=== PATIENT | male | born 1990 | race Caucasian/White ===

== ENCOUNTER 2020-08-23 15:51 | Outpatient (RCR) | payer MEDICARE, MEDICAID, SELFPAY ==
--- NOTE | 2020-08-23 16:57 | PTOPEVAL ---
Thank you for referring Akash Carias to [facility].? The patient is scheduled to be seen for therapy? ___2_x/week for 10 visits. Please review, sign, date and return this plan of care LES. I agree with and certify that the following plan of care is medically necessary. Referring Physician Date Admitting Provider: Attending Provider: Thai Lopez MD Referring Provider: *PT Outpatient Evaluation Start: 08/23/20 15:54 Freq: Status: Active Protocol: Document 08/23/20 15:55 CONY (Rec: 08/23/20 16:54 CONY [id number]) Therapy Assessment Status Assessment Status Assessment Status Evaluation Evaluation Information Problem Diagnosis neck pain and radiculopathy Onset 08/09/20 Subjective Information Pt. reports that he developed Query Text:As Reported By Patient/ neck pain about 2 weeks ago. Family He has Tourettes syndrome with involuntary motor tics. He states that he will punch the neck and cause self harm due to the tics. He reports his attack about 2 weeks ago resulted in his neck pain. He reports that he has pain on the left side of the neck and radiates down the entire left arm. He reports that pain wakes him at night frequently and notes weakness in the left arm. He has had MRI and xray . He reports that his goal for therapy is to decrease his pain. Prior Level of Function Activity Level (Last 3 Months) Occupation unemployed Hand Dominance Left Activity of Daily Living Ability Independent Indoor/Home Mobility Independent Community Mobility Independent Stairs Ability Independent Functional Cognition (Planning, Shopping Independent , Taking Medications) Cooking Yes Cleaning Yes Laundry Yes Shopping Yes Driving Yes Comments Additional Prior Level of Function He started prednisone today Comments for pain. He reports that he will watch moves for up to 4 hours of movies a day on his computer. He also does 2 hours a day of celio. Pain Assessment Timing of Pain Assessment
--- NOTE | 2020-11-13 14:47 | PCPTNOTE ---
Mr. Carias attended a total of 3 treatment sessions from 08/23/20 to 08/30/20. Pt. has failed to return to the clinic and not responded to attempted phone calls. He will be discharged from our care. Refer to the last daily note for pt. discharge status. Diony Monterroso, MPT
== END 2020-08-30 15:32 | disposition home or self-care (01) ==
LOC: CHSPT 15:51
PROVIDERS: PCP Internal Medicine; Visit Provider Internal Medicine
DX: M54.2 Cervicalgia (principal); M54.10 Radiculopathy, site unspecified
CPT/HCPCS: 97014; 97110; 97140; 97161; G0283

== ENCOUNTER 2020-08-25 18:14 | Emergency (ER) | payer MEDICARE, MEDICAID, SELFPAY ==
--- NOTE | ~2020-08-25 | CT_ITS ---
EXAMINATION: CT abdomen pelvis wo con DATE: 08/25/2020 20:15 INDICATION: Renal stone presenting with left lower back/flank pain. TECHNIQUE: Computed tomography (CT) of the abdomen and pelvis was performed without intravenous contr ast. Automated exposure control and iterative reconstruction technique were employed. The dose-length product was 503.57 mGy-cm. COMPARISON: None FINDINGS: Minimal lingular discoid atelectasis.. Heart size is normal. No pericardial or pleural effusion. Live r, gallbladder, spleen, pancreas and bilateral adrenal glands are normal. Kidneys and ureters are nor mal with no urolithiasis, hydroureteronephrosis or perinephric/ureteral stranding. Bladder is normal. Bowels are normal. The appendix is not visualized. No pericecal inflammatory change to suggest acute appendicitis.. No free intraperitoneal gas or fluid. No pathologically enlarged abdominal or pelvic lymphadenopathy. Moderate thoracic and mild lumbar spondylosis. IMPRESSION: 1. No urolithiasis or acute intra-abdominal/pelvic process. Reviewed, dictated and finalized at location A.
--- NOTE | ~2020-08-25 | XR_ITS ---
EXAMINATION: XR chest 2V DATE: 08/25/2020 20:15 INDICATION: Cough TECHNIQUE: PA and lateral views of the chest were obtained. COMPARISON: Chest radiograph dated 03/16/2017 FINDINGS: Small linear opacity at the lingula consistent with discoid atelectasis. No other airspace opacities, pulmonary edema, pleural effusion or pneumothorax. The cardiomediastinal silhouette is normal. Mild thoracolumbar spondylosis. IMPRESSION: 1. Minimal lingular discoid atelectasis. Reviewed, dictated and finalized at location A.
[2020-08-25 18:20] VITALS: BP 148/99; PULSE 118; RESP 20; TEMP 36.6; O2SAT 96
[2020-08-25] MEDS: KETOROLAC 30 MG/ML VIAL (*BKC) IV PUSH (19:03)
[2020-08-25] MEDS: BACLOFEN 10 MG TABLET 20 MG PO (19:14)
[2020-08-25] MEDS: DEXAMETHASONE SOD PHOS INJ 4 MG/ML VIAL 10 MG IV PUSH (19:15)
[2020-08-25 19:41] LABS: Basophils Absolute Auto 0.03 K/mm3 (0.00-0.10); Basophils Percent Auto 0.3 % (0.0-1.0); Hematocrit 43.2 % (40.0-54.0); Hemoglobin 14.5 g/dL (14.0-18.0); Immature Granulocyte Absolute 0.17 K/mm3 (0.00-0.00); Immature Granulocyte Percent A 1.5 % (0.0-0.0); Lymphocytes Absolute Auto 1.33 K/mm3 (1.10-4.50); Lymphocytes Percent Auto 11.8 % (18.0-42.0); Mean Corpuscular HGB Conc 33.6 g/dL (32.0-36.0); Mean Corpuscular Hemoglobin 30.1 pg (27.0-31.0); Mean Corpuscular Volume 89.8 fL (78.0-102.0); Mean Platelet Volume 9.2 fl (8.7-11.0); Monocytes Absolute Auto 0.44 K/mm3 (0.10-0.90); Monocytes Percent Auto 3.9 % (2.0-11.0); Neutrophils Absolute Auto 9.3 K/mm3 (1.7-7.2); Neutrophils Percent Auto 82.5 % (50.0-70.0); Platelet Count Result 378 K/mm3 (150-420); Red Blood Count 4.81 M/mm3 (4.70-6.10); Red Cell Distribution Width 12.9 % (11.6-14.4); White Blood Count 11.3 K/mm3 (4.8-10.8)
[2020-08-25 19:59] LABS: D Dimer 0.26 mg/L (0.19-0.50)
[2020-08-25 20:05] LABS: Add Urine Microscopic? NO; Appearance Urine Clear (Clear); Bilirubin Urine Negative (Negative); Blood Urine Negative (Negative); Color Urine Yellow (Yellow); Glucose Urine UA Negative (Negative); Ketones Urine Negative (Negative); Leukocyte Esterase Ur Negative (Negative); Nitrate Urine Negative (Negative); Protein Urine Negative (Negative); Urobilinogen Urine 0.2 mg/dL (0.2-1.0); pH Urine 6.5 (5.0-8.0)
[2020-08-25 20:10] LABS: Amphetamine Screen Urine Negative (Negative); Barbiturate Screen Urine Negative (Negative); Benzodiazepines Screen Urine Negative (Negative); Cannabinoid Screen Urine Positive (Negative); Cocaine Screen Urine Negative (Negative); Methadone Screen Urine Negative (Negative); Opiate Screen Urine Negative (Negative); Phencyclidine Screen Urine Negative (Negative)
[2020-08-25 20:13] LABS: Alanine Aminotransferase 35 U/L (16-63); Albumin Level 3.8 g/dL (3.4-5.0); Alkaline Phosphatase 118 U/L (46-116); Anion Gap 8 mmol/L (8-16); Aspartate Amino Transferase 17 U/L (15-37); Bilirubin,Total 0.4 mg/dL (0.00-1.00); Blood Urea Nitrogen 23 mg/dL (7-18); Calcium 8.9 mg/dL (8.5-10.1); Carbon Dioxide 30 mmol/L (21-32); Chloride 101 mmol/L (98-108); Estimated CRCL calculation 109 ml/min; Estimated Glomerular Filt Rate > 60; Glucose 112 mg/dL (70-99); Osmolality Calculated 292 mOsm/kg (285-295); Sodium 139 mmol/L (136-145); Total Protein 7.8 g/dL (6.4-8.2)
[2020-08-25 20:17] LABS: Troponin I < 4.0 ng/L (0.00-60.4)
[2020-08-25 20:35] VITALS: BP 148/98; PULSE 104; RESP 20; TEMP 36.7; O2SAT 94
--- NOTE | 2020-08-25 21:14 | ED.BACK ---
HPI - Back Pain/Injury General Chief Complaint: Back Pain/Injury Stated Complaint: pulled muscle Time Seen by Provider: 08/25/20 18:30 Source: patient and family Mode of arrival: ambulatory Limitations: no limitations History of Present Illness HPI Narrative: Patient comes in with complaints of left sided chest pain, and left back pain for the past 1 week. He is acting like he is in severe pain as if he can hardly move. He describes pain as severe, associated with shortness of breath, and abdominal pain. He actually is pointing in several places that he says hurts, this is a most confusing picture. But the main place of pain seems to be the left lower ribcage / upper abdomen area. Pain is sharp, seems to come and go, and is cramp like severe, breif in nature, but recurring This has not been precipitated by any known context. Related Data Home Medications Medication Instructions Recorded Confirmed clonazepam 5 mg PO TID 08/25/20 08/25/20 cyclobenzaprine 10 mg PO BID 08/25/20 08/25/20 doxepin 25 mg PO HS 08/25/20 08/25/20 paroxetine HCl 60 mg PO DAILY 08/25/20 08/25/20 prednisone 20 mg PO DAILY 08/25/20 08/25/20 Allergies Allergy/AdvReac Type Severity Reaction Status Date / Time No Known Allergies Allergy Unverified 12/05/11 06:37 Review of Systems Constitutional: Constitutional: Reports no additional constitutional complaints Eyes: Eyes: Reports no additional eye complaints ENT: Reports system reviewed and no additional complaints, except as documented Cardiovascular: Cardiovascular: Reports no additional cardiovascular complaints Respiratory: Respiratory: Reports no additional respiratory complaints Gastrointestinal: Gastrointestinal: Reports no additional gastrointestinal complaints Genitourinary: Genitourinary: Reports no additional male genitourinary complaints Musculoskeletal: Musculoskeletal: Reports no additional musculoskeletal complaints Integumentary/Breasts: Skin/Breast: Reports system reviewed and no additional complaints, except as docu Neurologic: Reports system reviewed and no additional complaints, except as documented Psychiatric: Psychiatric: Reports no additional psychiatric complaints Endocrine: Endocrine: Reports no additional endocrine complaints Hematologic/Lymphatic: Hematologic/Lymphatic: Reports no additional hematologic/lymphatic complaints Allergic/Immunologic: Allergic/Immunologic: Reports no additional allergic/immunologic complaints [facility] Past Medical History Medical History (Updated 08/26/20 @ 22:28 by Montana Gates MD) Fibromyalgia Surgical History Surgical History (Updated 08/26/20 @ 22:29 by Montana Gates MD) No significant past surgical history Family History Family History (Updated 08/26/20 @ 22:30 by Montana Gates MD) Mother COPD (chronic obstructive pulmonary disease) Father Colon cancer Social History Social History (Updated 08/26/20 @ 22:30 by Montana Gates MD) Substance use type: marijuana Exam Const: Orientation/consciousness: patient oriented x3 Other: Appears quite uncomfortable HENMT: Head: normal to inspection Ears: external ears normal and TM's normal bilaterally General nose exam: Normal external nose present Face and sinus: normal facial exam Mouth: Yes Abnormal oral and palatal mucosa present Throat: posterior oropharynx normal Eyes: Conjunctivae: conjunctivae normal Neck: Neck: normal visual inspection and no lymphadenopathy Chest: Chest palpation & inspection: normal inspection of the chest Resp: Effort & Inspection: normal respiratory effort Auscultation: clear to auscultation bilaterally Cardio: Rate: regular rate Rhythm: regular rhythm GI: GI Palp: Yes Soft to palpation (nontender) Back/Spine/Pelvis: Back: no CVA tenderness Skin: General skin exam: normal color Rashes: no rashes Neuro: General: patient oriented x3, moves all extremities and CN's II-XI intact bilaterally Extrem: General
[2020-08-25 21:32] VITALS: BP 137/78; PULSE 98; RESP 20; O2SAT 99
== END 2020-08-25 21:36 | disposition home or self-care (01) ==
PROVIDERS: Emergency Provider Emergency Medicine; PCP Internal Medicine
DX: M54.9 Dorsalgia, unspecified (principal); M79.7 Fibromyalgia; F12.90 Cannabis use, unspecified, uncomplicated; Z80.0 Family history of malignant neoplasm of digestive organs
CPT/HCPCS: 36415; 71046; 74176; 80053; 80307; 81003; 83605; 84484; 85025; 85380; 96374; 96375; 99283; 99284; A9270; J1100; J1885

== ENCOUNTER 2020-12-08 11:28 | Outpatient (CLI) | payer MEDICARE, SELFPAY ==
[2020-12-08 13:02] LABS: Thyroid Stimulating Hormone 1.46 uIU/mL (0.36-3.74)
[2020-12-12 09:53] LABS: Anti Streptolysin O Screen <50 IU/mL (<200); Ceruloplasmin 34 mg/dL (18-36)
== END 2020-12-08 11:29 | disposition home or self-care (01) ==
LOC: CHSLAB 11:32
PROVIDERS: PCP Internal Medicine
DX: F95.2 Tourette's disorder (principal); G25.9 Extrapyramidal and movement disorder, unspecified
CPT/HCPCS: 36415; 82390; 84443; 86060

== ENCOUNTER 2020-12-27 09:33 | Outpatient (CLI) | payer MEDICARE, MEDICAID, SELFPAY ==
--- NOTE | ~2020-12-27 | MR_ITS ---
EXAMINATION: MR elbow RT wo con DATE: 12/27/2020 10:54 INDICATION: Soft tissue mass at the supra cubital region of the right elbow. TECHNIQUE: Magnetic resonance imaging (MRI) of the right elbow was performed without intravenous cont rast. Sequences included coronal, axial, and sagittal PD-weighted FS FSE and coronal, axial, and sagi ttal PD-weighted FSE. COMPARISON: None FINDINGS: Osseous/other: Normal alignment. Normal marrow signal with no marrow edema, fracture, osteochondral lesion or abnor mal marrow replacing process. No abnormal masses or fluid collections identified. Tendons: Triceps, biceps brachii and brachialis tendons are normal. Common flexor tendon wad is normal. The c ommon extensor tendon wad is normal. Ligaments: The medial and lateral collateral ligament complexes are normal. Cubital tunnel: Cubital tunnel is unremarkable with normal signal and caliber of the ulnar nerve. Fluid: Physiologic amount of fluid the elbow joint. IMPRESSION: 1. Normal MRI of the right elbow. No abnormal masses or fluid collections identified at the region of concern. Reviewed, dictated and finalized at location A. IMPRESSION: 1. Normal MRI of the right elbow. No abnormal masses or fluid collections ident ified at the region of concern.
== END 2020-12-27 09:34 | disposition home or self-care (01) ==
LOC: CHSIMG 09:34
PROVIDERS: PCP Internal Medicine; Visit Provider Internal Medicine
DX: R22.31 Localized swelling, mass and lump, right upper limb (principal)
CPT/HCPCS: 73221

== ENCOUNTER 2021-06-05 09:25 | Emergency (ER) | payer OTHER, SELFPAY ==
--- NOTE | ~2021-06-05 | CT_ITS ---
EXAMINATION: CT brain wo con EXAM DATE: 06/05/2021 10:09 INDICATION: Syncope injury to post skull, hx mult syncopal episodes. TECHNIQUE: Spiral CT of the head was performed without contrast. Axial, coronal and sagittal images were reviewed. The dose-length product (DLP) for this examination was 605.33 mGy-cm. The exposure w as tailored according to patient size, and iterative reconstruction (ASIR) was used as additional dos e reduction technique. There is no prior study for comparison. FINDINGS: There is no acute intraparenchymal hemorrhage. No evidence of intraparenchymal brain mass lesion. No evidence of acute infarction. There is no mass effect or midline shift. The ventricles are normal in size. There are no extra-axial collections. There are no acute calvarial fractures. T he orbits are unremarkable. Soft tissue is unremarkable. The visualized sinuses and mastoid air hector ls are well aerated. IMPRESSION: No acute intracranial findings. Reviewed, dictated and finalized at location B. 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
--- NOTE | ~2021-06-05 | XR_ITS ---
EXAMINATION: XR chest 2V DATE: 06/05/2021 10:10 INDICATION: Syncope and confusion. TECHNIQUE: frontal and lateral views of the chest were obtained. COMPARISON: Chest radiograph dated 08/25/2020 FINDINGS: The lungs are clear with no focal airspace opacities, pulmonary edema, pleural effusion or pneumothor ax. The cardiomediastinal silhouette is normal. Mild thoracic spondylosis with straightening of the n ormal thoracic kyphosis. IMPRESSION: 1. No acute cardiopulmonary disease. Reviewed, dictated and finalized at location A. NE HEALER
--- NOTE | 2021-06-05 09:34 | ECG_ITS ---
Measurements Intervals [place] Rate: 100 P: 66 [place]: 149 QRS: 59 QRSD: 88 T: 61 QT: 323 QTc: 418 Interpretive Statements SINUS TACHYCARDIA BASELINE ARTIFACT- I, II, AVR, AVL, AVF BORDERLINE ECG Electronically Signed On 06-05-2021 10:07:31 [employer] by Rishi Enamorado D.O.
[2021-06-05 09:35] VITALS: PULSE 90
--- NOTE | 2021-06-05 09:37 | ED.SYNCOPE ---
HPI - Syncope General Chief Complaint: Syncope Stated Complaint: AMBULANCE Time Seen by Provider: 06/05/21 09:37 Source: patient Mode of arrival: EMS Limitations: no limitations History of Present Illness HPI narrative: 31-year-old man with history of Tourette's, frequent syncopal episodes, and cervical spine stenosis brought to the emergency department by EMS after he had a syncopal episode at home during which he struck the back of his head on an appliance. His family states that he was unconscious only briefly. His mother stated that he usually recovers rapidly after syncopal episodes but today he seemed confused for a bit longer than usual. He states that he has frequent episodes of confusion. He has been well lately and has had no recent illness. MD complaint: loss of consciousness Onset (ago): minute(s) (30) -: second(s) Prodromal symptoms: none Witnessed: Yes - by Bystander Context: standing up Injuries sustained associated with event: head Current symptoms: none History: previous syncopal episode Treatments prior to arrival: none Related Data Home Medications Medication Instructions Recorded Confirmed clonazepam 5 mg PO TID 08/25/20 06/05/21 cyclobenzaprine 10 mg PO BID 08/25/20 06/05/21 doxepin 25 mg PO HS 08/25/20 06/05/21 paroxetine HCl 60 mg PO DAILY 08/25/20 06/05/21 albuterol sulfate [Ventolin HFA] 90 mcg INHALATION PRN PRN 06/05/21 06/05/21 atenolol 50 mg PO DAILY 06/05/21 06/05/21 Allergies Allergy/AdvReac Type Severity Reaction Status Date / Time No Known Allergies Allergy Verified 06/05/21 10:35 Review of Systems Review of Systems: ROS per the patient's family. Constitutional: Constitutional: Denies fatigue and Denies fever(s) ENT: Denies nasal congestion and Denies sore throat Cardiovascular: Cardiovascular: Denies chest pain Respiratory: Respiratory: Reports cough ( chronic) and Denies dyspnea Gastrointestinal: Gastrointestinal: Denies abdominal pain, Denies diarrhea, Denies nausea and Denies vomiting Musculoskeletal: Musculoskeletal: Reports back pain ( chronic neck pain), Denies arthralgias and Denies joint swelling Integumentary/Breasts: Skin/Breast: Denies pruritus, Denies erythema and Denies rash Neurologic: Reports as per HPI and Reports syncope [facility] Past Medical History Medical History (Updated 06/05/21 @ 10:57 by Jarret Bernardo MD) Fibromyalgia Syncopal episodes Tourette syndrome Surgical History Surgical History (Updated 08/26/20 @ 22:29 by Montana Gates MD) No significant past surgical history Family History Family History (Updated 08/26/20 @ 22:30 by Montana Gates MD) Mother COPD (chronic obstructive pulmonary disease) Father Colon cancer Social History Social History (Updated 06/05/21 @ 10:10 by Jarret Bernardo MD) Smoking status: Never smoker Alcohol intake: never Substance use type: marijuana Living arrangements: with family Exam Const: General: healthy appearing, no acute distress, alert and confusion HENMT: Head: laceration (4.5 cm occiput) Ears: external ears normal, TM's normal bilaterally and EAC's normal General nose exam: Normal nares present Face and sinus: normal facial exam Mouth: Yes moist mucous membranes Throat: posterior oropharynx normal Eyes: Conjunctivae: conjunctivae normal Pupils: Equal, round and reactive pupils present EOM: EOMs intact bilaterally Resp: Effort & Inspection: normal respiratory effort and not labored Auscultation: clear to auscultation bilaterally, no rales, no rhonchi and no wheezes Cardio: Rate: regular rate Rhythm: regular rhythm Heart sounds: no murmurs GI: Auscultation: normal bowel sounds ( nontender) Other: follicular rash around the umbilicus Skin: General skin exam: normal color, no jaundice and no pallor Rashes: no rashes Neuro: General: patient oriented x3, moves all extremities, no focal motor deficits and CN's II-XI intact bilaterally Cranial nerves: Yes N
[2021-06-05 09:40] VITALS: BP 109/84; BP 118/82; PULSE 104; PULSE 93
[2021-06-05 09:42] VITALS: BP 109/84; PULSE 104
[2021-06-05] MEDS: SODIUM CHLORIDE 0.9% IV 1,000 ML 999 ML IV CONT (09:42)
[2021-06-05 09:45] VITALS: BP 133/106; PULSE 99; RESP 16; TEMP 36.3; O2SAT 97
[2021-06-05 10:26] LABS: Basophils Absolute Auto 0.05 K/mm3 (0.00-0.10); Basophils Percent Auto 0.6 % (0.0-1.0); Eosinophils Absolute Auto 0.43 K/mm3 (0.02-0.50); Eosinophils Percent Auto 5.4 % (1.0-6.0); Hematocrit 41.1 % (40.0-54.0); Hemoglobin 14.4 g/dL (14.0-18.0); Immature Granulocyte Absolute 0.06 K/mm3 (0.00-0.00); Immature Granulocyte Percent A 0.8 % (0.0-0.0); Lymphocytes Absolute Auto 1.49 K/mm3 (1.10-4.50); Lymphocytes Percent Auto 18.8 % (18.0-42.0); Mean Corpuscular Hemoglobin 30.8 pg (27.0-31.0); Mean Corpuscular Volume 87.8 fL (78.0-102.0); Monocytes Absolute Auto 0.47 K/mm3 (0.10-0.90); Monocytes Percent Auto 5.9 % (2.0-11.0); Neutrophils Absolute Auto 5.4 K/mm3 (1.7-7.2); Neutrophils Percent Auto 68.5 % (50.0-70.0); Platelet Count Result 319 K/mm3 (150-420); Red Blood Count 4.68 M/mm3 (4.70-6.10); Red Cell Distribution Width 12.6 % (11.6-14.4); White Blood Count 7.9 K/mm3 (4.8-10.8)
[2021-06-05 10:43] LABS: D Dimer 0.43 mg/L (0.19-0.50)
[2021-06-05 10:45] VITALS: BP 117/83; PULSE 86; RESP 16; O2SAT 95
--- NOTE | 2021-06-05 10:45 | PC.NURSE ---
Assisted Dr. Bernardo with laceration repair.
[2021-06-05 10:48] LABS: Lactic Acid Reflex 1.3 mmol/L (0.4-2.0)
[2021-06-05 10:49] LABS: Alanine Aminotransferase 60 U/L (16-63); Albumin Level 3.5 g/dL (3.4-5.0); Alkaline Phosphatase 127 U/L (46-116); Anion Gap 12 mmol/L (8-16); Aspartate Amino Transferase 32 U/L (15-37); Bilirubin,Total 0.5 mg/dL (0.00-1.00); Blood Urea Nitrogen 15 mg/dL (7-18); Calcium 8.7 mg/dL (8.5-10.1); Carbon Dioxide 27 mmol/L (21-32); Chloride 98 mmol/L (98-108); Estimated CRCL calculation 117 ml/min; Estimated Glomerular Filt Rate > 60; Glucose 96 mg/dL (70-99); Magnesium 2.1 mg/dL (1.8-2.4); Osmolality Calculated 284 mOsm/kg (285-295); Potassium 4.5 mmol/L (3.5-5.1); Sodium 137 mmol/L (136-145); Total Protein 7.4 g/dL (6.4-8.2)
[2021-06-05 10:51] LABS: Troponin I < 4.0 ng/L (0.00-60.4)
[2021-06-05 10:53] LABS: SARS-CoV-2 Ag Negative (Negative)
== END 2021-06-05 11:40 | disposition home or self-care (01) ==
PROVIDERS: Emergency Provider Emergency Medicine; PCP Internal Medicine
DX: R55 Syncope and collapse (principal); S09.90XA Unspecified injury of head, initial encounter; S01.01XA Laceration without foreign body of scalp, initial encounter; W22.8XXA Striking against or struck by other objects, initial encounter; Z20.822 Contact with and (suspected) exposure to COVID-19
CPT/HCPCS: 12002; 36415; 70450; 71046; 80053; 83605; 83735; 84484; 85025; 85380; 87426; 93005; 96360; 99284; C9803; J7030

== ENCOUNTER 2021-09-18 13:48 | Outpatient (RCR) | payer OTHER, SELFPAY ==
--- NOTE | 2021-09-18 15:10 | PTOPEVAL ---
Thank you for referring Akash Carias to [facility].? The patient is scheduled to be seen for therapy? __2__x/week for 10 visits. Please review, sign, date and return this plan of care LES. I agree with and certify that the following plan of care is medically necessary. Referring Physician Date Admitting Provider: Attending Provider: Massimo Deal Referring Provider: *PT Outpatient Evaluation Start: 09/18/21 14:13 Freq: Status: Active Protocol: Document 09/18/21 14:13 CONY (Rec: 09/18/21 15:10 CONY [id number]) Therapy Assessment Status Assessment Status Assessment Status Evaluation Outpatient Past Medical History Cardiovascular History Hx Hypertension Yes Gastrointestinal History Hx Obstructive Bowel Yes Psychosocial History Hx Anxiety Yes Hx Attention Deficit Disorder Yes Hx Depression Yes Hx Other Psychiatric Disorders Yes: ocd Other History Hx Other Medical Conditions Yes: tourettes syndrome Evaluation Information Problem Diagnosis cervical radiculopathy Onset 08/14/21 Subjective Information Pt. reports that that he began Query Text:As Reported By Patient/ developing weakness that Family developed into paralysis in July. He underwent surgery after MRI revealed pinched nerve in his neck. His mother is present and states that pt . developed some akward slow movements after surgery. He states that he cannot put deodorant and put a shirt on without help from his mother. He reports that he is currently using a walker and is numb from the waist down. He states that he gets uncontrollable shaking into the l.e. He reports that his goal is to be able to walk normal. Prior Level of Function Activity Level (Last 3 Months) Occupation disability Hand Dominance Ambidextrous Activity of Daily Living Ability Independent Indoor/Home Mobility Independent Community Mobility Independent Stairs Ability Independent Functional Cognition (Planning, Shopping Independent , Taking Medications) Cooking Yes Cleaning Yes Laundry Yes Shopping
--- NOTE | 2021-10-02 17:20 | OTOPEVAL ---
Thank you for referring Akash Carias to [facility].? The patient is scheduled to be seen for therapy? ____x/week for ___ weeks. Please review, sign, date and return this plan of care LES. I agree with and certify that the following plan of care is medically necessary. Referring Physician Date Admitting Provider: Attending Provider: Massimo Deal Referring Provider: RebekaOT Outpatient Evaluation Start: 10/02/21 15:05 Freq: Status: Active Protocol: Document 10/02/21 15:44 MBS (Rec: 10/02/21 17:20 [facility] [id number]) Therapy Assessment Status Assessment Status Assessment Status Evaluation Outpatient Past Medical History Cardiovascular History Hx Hypertension Yes Gastrointestinal History Hx Obstructive Bowel Yes Psychosocial History Hx Anxiety Yes Hx Attention Deficit Disorder Yes Hx Depression Yes Hx Other Psychiatric Disorders Yes: ocd Other History Hx Other Medical Conditions Yes: tourettes syndrome Evaluation Information Problem Diagnosis UE weakness, decreased coordination Onset 08/21/21 Cause cervical radiculopathy Additional Evaluation Detail Quick DASH: 86.4% Subjective Information Pt. reports that that he began Query Text:As Reported By Patient/ developing weakness that Family developed into paralysis in July. He underwent surgery after MRI revealed pinched nerve in his neck. (mother reports spinal cord was almost severed) His mother is present and assists in providing subjective information. Patient states that he cannot put deodorant on and put a shirt on without help from his mother. He reports that he is currently using a walker and is numb from the waist down. He states that he gets uncontrollable shaking into the l.e. He reports that his goal is to be able to walk normal. Prior to surgery patient reports that he was independent with all ADLs and IADLs. Patient reports that his L hand likes to draw in. Patient writes with his
--- NOTE | 2021-10-02 18:07 | OTOPEVAL ---
Thank you for referring Akash Carias to [facility].? The patient is scheduled to be seen for therapy? ____x/week for ___ weeks. Please review, sign, date and return this plan of care LES. I agree with and certify that the following plan of care is medically necessary. Referring Physician Date Admitting Provider: Attending Provider: Massimo Deal Referring Provider: RebekaOT Outpatient Evaluation Start: 10/02/21 15:05 Freq: Status: Active Protocol: Document 10/02/21 15:44 MBS (Rec: 10/02/21 17:20 [id number]) Therapy Assessment Status Assessment Status Assessment Status Evaluation Outpatient Past Medical History Cardiovascular History Hx Hypertension Yes Gastrointestinal History Hx Obstructive Bowel Yes Psychosocial History Hx Anxiety Yes Hx Attention Deficit Disorder Yes Hx Depression Yes Hx Other Psychiatric Disorders Yes: ocd Other History Hx Other Medical Conditions Yes: tourettes syndrome Evaluation Information Problem Diagnosis UE weakness, decreased coordination Onset 08/21/21 Cause cervical radiculopathy Additional Evaluation Detail Quick DASH: 86.4% Subjective Information Pt. reports that that he began Query Text:As Reported By Patient/ developing weakness that Family developed into paralysis in July. He underwent surgery after MRI revealed pinched nerve in his neck. (mother reports spinal cord was almost severed) His mother is present and assists in providing subjective information. Patient states that he cannot put deodorant on and put a shirt on without help from his mother. He reports that he is currently using a walker and is numb from the waist down. He states that he gets uncontrollable shaking into the l.e. He reports that his goal is to be able to walk normal. Prior to surgery patient reports that he was independent with all ADLs and IADLs. Patient reports that his L hand likes to draw in. Patient writes with his
--- NOTE | 2021-11-16 12:32 | PTOPEVAL ---
Thank you for referring Akash Carias to [facility].? The patient is scheduled to be seen for therapy? 2x/week for 4 visits. Please review, sign, date and return this plan of care LES. I agree with and certify that the following plan of care is medically necessary. Referring Physician Date Admitting Provider: Attending Provider: Massimo Deal Referring Provider: RebekaPT Outpatient Evaluation Start: 09/18/21 14:13 Freq: Status: Active Protocol: Document 11/16/21 11:09 [facility] (Rec: 11/16/21 12:31 [facility] [email or web address]) Therapy Assessment Status Assessment Status Assessment Status Progress Outpatient Past Medical History Cardiovascular History Hx Hypertension Yes Gastrointestinal History Hx Obstructive Bowel Yes Psychosocial History Hx Anxiety Yes Hx Attention Deficit Disorder Yes Hx Depression Yes Hx Other Psychiatric Disorders Yes: ocd Other History Hx Other Medical Conditions Yes: tourettes syndrome Evaluation Information Problem Diagnosis cervical radiculopathy Onset 08/14/21 Subjective Information Pt reports that he is doing Query Text:As Reported By Patient/ well today and denies pain. He Family is unsure if he has had a fall since last session, but reports he notices near falls when he first wakes up for the morning or from a nap. He believes this might be due to the fact that he sometimes falls asleep at his desk in a seated position that is quite low, and the grogginess on top of the low height lead to falls. Denies dark conditions during these near falls. Pain Assessment Timing of Pain Assessment Timing of Pain Assessment Pre-Treatment Self Report Self Report Pain Level 0 Pain Score Pain Score 0: Self Report Cervical and Lumbar ROM Cervical ROM Cervical Flexion (0-60) 45 Query Text:Active in Degrees Cervical Extension (0-70) 25 Query Text:Active in Degrees Cervical Lateral Flexion Right (0-50) 15 Query Text:Active in Degrees Cervical Lateral Flexion Left (0-50) 15 Query Text:Active in Degrees Cervical Rotation Right (0-90) 55 Query Text:Active in Degrees Cervical Rotation Left (0-90) 65 Query Text:Active in Degrees Lower Extremity Muscle Strength Testing General Lower Extremity Strength Gross Lower Extremity Strength Bilateral hip flexion: 55
--- NOTE | 2021-12-05 21:19 | PTOPEVAL ---
Thank you for referring Akash Carias to [facility].? The patient is scheduled to be seen for therapy? ____x/week for ___ weeks. Please review, sign, date and return this plan of care LES. I agree with and certify that the following plan of care is medically necessary. Referring Physician Date Admitting Provider: Attending Provider: Massimo Deal Referring Provider: LO Outpatient Evaluation Start: 09/18/21 14:13 Freq: Status: Active Protocol: Document 11/28/21 13:00 [facility] (Rec: 11/28/21 13:54 [facility] [id number]) Therapy Assessment Status Assessment Status Assessment Status Re-evaluation Outpatient Past Medical History Cardiovascular History Hx Hypertension Yes Gastrointestinal History Hx Obstructive Bowel Yes Psychosocial History Hx Anxiety Yes Hx Attention Deficit Disorder Yes Hx Depression Yes Hx Other Psychiatric Disorders Yes: ocd Other History Hx Other Medical Conditions Yes: tourettes syndrome Evaluation Information Problem Diagnosis cervical radiculopathy Onset 08/14/21 Subjective Information patient reports he is having Query Text:As Reported By Patient/ surgery next week, and expects Family that he wont be back into therapy for about a month. he reports his legs are tired today. Pain Assessment Timing of Pain Assessment Timing of Pain Assessment Assessment Self Report Self Report Pain Level 0 Pain Score Pain Score 0: Self Report Lower Extremity Muscle Strength Testing General Lower Extremity Strength Gross Lower Extremity Strength Bilateral hip flexion: 5/5 Bilateral knee extension: 5/5 Bilateral knee flexion: 5/5 R ankle dorsiflexion: 4/5 L ankle dorsiflexion: 4+/5 Balance Assessment Tinetti Balance Assessment Sitting Balance Steady, safe Ability to Arise Able, w/o using arms Attempts to Arise Arises on 1st attempt Immediate Standing Balance Steady w/o support Standing Balance Narrow stance w/o support Nudged Response Steady Standing with Eyes Closed Steady Step Pattern Turning 360 Degrees Discontinuous steps Stability Turning 360 Degrees Steady Sitting Down Safe, steady Initiation of Gait Hesitancy, mult. attempts Right Foot Step Length Does pass stance foot Right Foot Step Height Completely clears floor Left Foot Step Length Does pass stance foot Left Foot Step Height Completely clears floor Step Symmetry
== END 2021-11-28 10:01 | disposition home or self-care (01) ==
LOC: CHSPT 13:48
PROVIDERS: PCP Internal Medicine
DX: M54.12 Radiculopathy, cervical region (principal)
CPT/HCPCS: 97110; 97112; 97140; 97162; 97165; 97530

== ENCOUNTER 2021-10-22 10:42 | Outpatient (CLI) | payer OTHER, SELFPAY ==
--- NOTE | ~2021-10-22 | XR_ITS ---
EXAMINATION:[id number] DATE: 10/22/2021 11:09 INDICATION: Neck pain TECHNIQUE: AP, lateral, lateral swimmers and odontoid views of the cervical spine are provided. COMPARISON: 12/14/2018 FINDINGS: There is reversal of the normal cervical lordosis. Alignment is normal. There is no fractur e. There are changes of interval anterior fusion from C3 through C7 with two anterior fusion plates w hich overlap at the level of C5. There also appear to be interbody device. There is mild loss of vert ebral body height at C5. The odontoid is intact. There is moderate facet osteoarthritis throughout th e cervical spine. Prevertebral soft tissues are normal. IMPRESSION: 1. Changes of interval anterior fusion from C3 through C7 and moderate cervical spondylosis without a cute findings identified. Reviewed, dictated and finalized at location A. IMPRESSION: 1. Changes of interval anterior fusion from C3 through C7 and moderate cervical spondylosis without acute findings identified.
== END 2021-10-22 10:43 | disposition home or self-care (01) ==
LOC: CHSIMG 10:47
DX: M54.12 Radiculopathy, cervical region (principal)
CPT/HCPCS: 72040

== ENCOUNTER 2021-12-17 13:07 | Outpatient (CLI) | payer OTHER, SELFPAY ==
--- NOTE | ~2021-12-17 | XR_ITS ---
EXAMINATION: XR_CERV2-3V_CR DATE: 12/17/2021 13:41 INDICATION: Cervical radiculopathy. TECHNIQUE: 3 views of cervical spine on 4 radiographs were obtained. COMPARISON: Cervical spine radiograph 10/22/2021 FINDINGS: There is 4 degrees dextrocurvature of cervical spine. There is kyphosis of upper cervical s pine. There is 4 mm anterolisthesis of C7 on T1. There are changes of anterior fusion procedure from C3 the C7 with interbody bone graft and anterior plate with screws. There are changes of posterior fu derrick procedure from C3 to C7 with lateral mass screws, new from 10/22/2021. Intervertebral disc height s are normal at C2-C3 and C7-T1. No central canal stenosis or prevertebral soft tissue swelling. Post erior skin juno are noted. IMPRESSION: 1. Posterior fusion procedure from C3 to C7, new from 10/22/2021. 2. 4 mm anterolisthesis of C7 on T1, worsened from 10/22/2021. 3. Anterior fusion procedures from C3 to C7. Reviewed, dictated and finalized at location A.
== END 2021-12-17 13:08 | disposition home or self-care (01) ==
LOC: CHSIMG 13:10
DX: M54.12 Radiculopathy, cervical region (principal)
CPT/HCPCS: 72040

== ENCOUNTER 2021-12-21 09:57 | Outpatient (CLI) | payer OTHER, SELFPAY ==
[2021-12-21 10:15] LABS: Basophils Absolute Auto 0.03 K/mm3 (0.00-0.10); Basophils Percent Auto 0.2 % (0.0-1.0); Eosinophils Absolute Auto 0.04 K/mm3 (0.02-0.50); Eosinophils Percent Auto 0.3 % (1.0-6.0); Hematocrit 38.2 % (40.0-54.0); Immature Granulocyte Absolute 0.04 K/mm3 (0.00-0.00); Immature Granulocyte Percent A 0.3 % (0.0-0.0); Lymphocytes Absolute Auto 0.71 K/mm3 (1.10-4.50); Lymphocytes Percent Auto 5.4 % (18.0-42.0); Mean Corpuscular Hemoglobin 29.5 pg (27.0-31.0); Mean Corpuscular Volume 86.6 fL (78.0-102.0); Mean Platelet Volume 8.4 fl (8.7-11.0); Monocytes Absolute Auto 0.52 K/mm3 (0.10-0.90); Neutrophils Absolute Auto 11.8 K/mm3 (1.7-7.2); Neutrophils Percent Auto 89.8 % (50.0-70.0); Platelet Count Result 468 K/mm3 (150-420); Red Blood Count 4.41 M/mm3 (4.70-6.10); Red Cell Distribution Width 12.1 % (11.6-14.4); White Blood Count 13.1 K/mm3 (4.8-10.8)
[2021-12-21 11:19] LABS: Erythrocyte Sedimentation Rate 45 mm/hr (0-15)
== END 2021-12-21 09:58 | disposition home or self-care (01) ==
LOC: CHSLAB 09:59
DX: Z00.00 Encounter for general adult medical examination without abnormal findings (principal); M46.32 Infection of intervertebral disc (pyogenic), cervical region
CPT/HCPCS: 36415; 85025; 85652; 86140

== ENCOUNTER 2022-01-04 10:13 | Outpatient (NON) | payer OTHER, SELFPAY ==
[2022-01-04 11:13] LABS: Vancomycin Trough 11.8 ug/mL (10.0-15.0)
== END 2022-01-04 10:14 | disposition home or self-care (01) ==
LOC: CHSLAB 10:21
DX: M46.32 Infection of intervertebral disc (pyogenic), cervical region (principal)
CPT/HCPCS: 80202

== ENCOUNTER 2022-01-08 10:36 | Outpatient (NON) | payer OTHER, SELFPAY ==
[2022-01-08 10:52] LABS: Basophils Absolute Auto 0.05 K/mm3 (0.00-0.10); Basophils Percent Auto 0.9 % (0.0-1.0); Eosinophils Percent Auto 5.4 % (1.0-6.0); Hematocrit 40.9 % (40.0-54.0); Hemoglobin 13.1 g/dL (14.0-18.0); Immature Granulocyte Absolute 0.02 K/mm3 (0.00-0.00); Immature Granulocyte Percent A 0.4 % (0.0-0.0); Lymphocytes Absolute Auto 1.51 K/mm3 (1.10-4.50); Lymphocytes Percent Auto 27.3 % (18.0-42.0); Mean Corpuscular Hemoglobin 28.9 pg (27.0-31.0); Mean Corpuscular Volume 90.1 fL (78.0-102.0); Monocytes Absolute Auto 0.37 K/mm3 (0.10-0.90); Monocytes Percent Auto 6.7 % (2.0-11.0); Neutrophils Absolute Auto 3.3 K/mm3 (1.7-7.2); Neutrophils Percent Auto 59.3 % (50.0-70.0); Platelet Count Result 358 K/mm3 (150-420); Red Blood Count 4.54 M/mm3 (4.70-6.10); Red Cell Distribution Width 12.8 % (11.6-14.4); White Blood Count 5.5 K/mm3 (4.8-10.8)
[2022-01-08 11:08] LABS: Alanine Aminotransferase 38 U/L (16-63); Albumin Level 3.7 g/dL (3.4-5.0); Alkaline Phosphatase 146 U/L (46-116); Anion Gap 9 mmol/L (8-16); Aspartate Amino Transferase 36 U/L (15-37); Bilirubin,Total 0.3 mg/dL (0.00-1.00); Blood Urea Nitrogen 10 mg/dL (7-18); CRP 1.2 mg/dL (0.0-0.9); Calcium 9.4 mg/dL (8.5-10.1); Carbon Dioxide 29 mmol/L (21-32); Chloride 99 mmol/L (98-108); Estimated Glomerular Filt Rate > 60; Glucose 92 mg/dL (70-99); Osmolality Calculated 283 mOsm/kg (285-295); Sodium 137 mmol/L (136-145); Total Protein 7.5 g/dL (6.4-8.2); Vancomycin Trough 16.2 ug/mL (10.0-15.0)
[2022-01-08 11:52] LABS: Erythrocyte Sedimentation Rate 36 mm/hr (0-15)
== END 2022-01-08 10:37 | disposition home or self-care (01) ==
LOC: CHSLAB 10:42
DX: M46.32 Infection of intervertebral disc (pyogenic), cervical region (principal)
CPT/HCPCS: 36415; 80053; 80202; 85025; 85652; 86140

== ENCOUNTER 2022-01-11 11:59 | Outpatient (CLI) | payer OTHER, SELFPAY ==
[2022-01-11] MEDS: ALTEPLASE 2 MG VIAL (CATHFLO) IV PUSH (12:40)
--- NOTE | 2022-01-11 13:36 | PC.NURSE ---
The red port if the power picc does not flush , the Blue port flushes but does not give blood. 2mg of Cathflo / alteplase instilled in the red port. After 40 minute dwell time patency was restored. The blue port was flushed with 10 ML NS x3. Patency was restored, flushes easily and good blood return. Leuer locks and caps changed. Dressing is CDI. Pt tolerated well.
== END 2022-01-11 12:00 | disposition home or self-care (01) ==
LOC: CHSTREATRM 12:06
DX: T82.898A Other specified complication of vascular prosthetic devices, implants and grafts, initial encounter (principal)
CPT/HCPCS: 36593; J2997

== ENCOUNTER 2022-01-15 09:21 | Outpatient (NON) | payer OTHER, SELFPAY ==
[2022-01-15 09:45] LABS: Basophils Absolute Auto 0.04 K/mm3 (0.00-0.10); Basophils Percent Auto 0.7 % (0.0-1.0); Eosinophils Absolute Auto 0.34 K/mm3 (0.02-0.50); Eosinophils Percent Auto 5.8 % (1.0-6.0); Hematocrit 37.3 % (40.0-54.0); Hemoglobin 12.3 g/dL (14.0-18.0); Immature Granulocyte Absolute 0.02 K/mm3 (0.00-0.00); Immature Granulocyte Percent A 0.3 % (0.0-0.0); Lymphocytes Absolute Auto 2.04 K/mm3 (1.10-4.50); Lymphocytes Percent Auto 34.6 % (18.0-42.0); Mean Corpuscular Hemoglobin 29.1 pg (27.0-31.0); Mean Corpuscular Volume 88.4 fL (78.0-102.0); Mean Platelet Volume 9.7 fl (8.7-11.0); Monocytes Absolute Auto 0.42 K/mm3 (0.10-0.90); Monocytes Percent Auto 7.1 % (2.0-11.0); Neutrophils Percent Auto 51.5 % (50.0-70.0); Platelet Count Result 298 K/mm3 (150-420); Red Blood Count 4.22 M/mm3 (4.70-6.10); Red Cell Distribution Width 13.1 % (11.6-14.4); White Blood Count 5.9 K/mm3 (4.8-10.8)
[2022-01-15 09:45] LABS: Add Urine Microscopic? NO; Appearance Urine Clear (Clear); Bilirubin Urine Negative (Negative); Blood Urine Negative (Negative); Color Urine Yellow (Yellow); Glucose Urine UA Negative (Negative); Ketones Urine Negative (Negative); Leukocyte Esterase Ur Negative (Negative); Nitrate Urine Negative (Negative); Protein Urine Negative (Negative); Urobilinogen Urine 0.2 mg/dL (0.2-1.0)
[2022-01-15 10:04] LABS: Alanine Aminotransferase 27 U/L (16-63); Albumin Level 3.3 g/dL (3.4-5.0); Alkaline Phosphatase 116 U/L (46-116); Anion Gap 4 mmol/L (8-16); Aspartate Amino Transferase 19 U/L (15-37); Bilirubin,Total 0.3 mg/dL (0.00-1.00); Blood Urea Nitrogen 14 mg/dL (7-18); CRP < 0.5 mg/dL (0.0-0.9); Carbon Dioxide 31 mmol/L (21-32); Chloride 105 mmol/L (98-108); Estimated Glomerular Filt Rate > 60; Glucose 89 mg/dL (70-99); Osmolality Calculated 289 mOsm/kg (285-295); Potassium 4.1 mmol/L (3.5-5.1); Sodium 140 mmol/L (136-145); Total Protein 6.7 g/dL (6.4-8.2); Vancomycin Trough 15.9 ug/mL (10.0-15.0)
[2022-01-15 10:44] LABS: Erythrocyte Sedimentation Rate 38 mm/hr (0-15)
== END 2022-01-15 09:22 | disposition home or self-care (01) ==
DX: S12.9XXA Fracture of neck, unspecified, initial encounter (principal); Z01.818 Encounter for other preprocedural examination; M46.32 Infection of intervertebral disc (pyogenic), cervical region; Z51.81 Encounter for therapeutic drug level monitoring
CPT/HCPCS: 36415; 80053; 80202; 81003; 85025; 85652; 86140

== ENCOUNTER 2022-01-22 12:04 | Outpatient (NON) | payer OTHER, SELFPAY ==
[2022-01-22 12:27] LABS: Basophils Absolute Auto 0.04 K/mm3 (0.00-0.10); Basophils Percent Auto 0.6 % (0.0-1.0); Eosinophils Absolute Auto 0.46 K/mm3 (0.02-0.50); Eosinophils Percent Auto 6.8 % (1.0-6.0); Hematocrit 35.8 % (40.0-54.0); Hemoglobin 11.7 g/dL (14.0-18.0); Immature Granulocyte Absolute 0.03 K/mm3 (0.00-0.00); Immature Granulocyte Percent A 0.4 % (0.0-0.0); Lymphocytes Percent Auto 34.1 % (18.0-42.0); Mean Corpuscular HGB Conc 32.7 g/dL (32.0-36.0); Mean Corpuscular Hemoglobin 28.7 pg (27.0-31.0); Mean Corpuscular Volume 87.7 fL (78.0-102.0); Mean Platelet Volume 9.4 fl (8.7-11.0); Monocytes Absolute Auto 0.69 K/mm3 (0.10-0.90); Monocytes Percent Auto 10.2 % (2.0-11.0); Neutrophils Absolute Auto 3.2 K/mm3 (1.7-7.2); Neutrophils Percent Auto 47.9 % (50.0-70.0); Platelet Count Result 320 K/mm3 (150-420); Red Blood Count 4.08 M/mm3 (4.70-6.10); Red Cell Distribution Width 13.2 % (11.6-14.4); White Blood Count 6.8 K/mm3 (4.8-10.8)
[2022-01-22 12:37] LABS: Alanine Aminotransferase 25 U/L (16-63); Albumin Level 3.4 g/dL (3.4-5.0); Alkaline Phosphatase 107 U/L (46-116); Anion Gap 8 mmol/L (8-16); Aspartate Amino Transferase 19 U/L (15-37); Bilirubin,Total 0.5 mg/dL (0.00-1.00); Blood Urea Nitrogen 7 mg/dL (7-18); CRP 11.5 mg/dL (0.0-0.9); Carbon Dioxide 31 mmol/L (21-32); Chloride 102 mmol/L (98-108); Estimated Glomerular Filt Rate > 60; Glucose 85 mg/dL (70-99); Osmolality Calculated 289 mOsm/kg (285-295); Potassium 4.2 mmol/L (3.5-5.1); Sodium 141 mmol/L (136-145); Total Protein 6.8 g/dL (6.4-8.2); Vancomycin Trough 11.1 ug/mL (10.0-15.0)
[2022-01-22 12:57] LABS: Erythrocyte Sedimentation Rate 45 mm/hr (0-15)
== END 2022-01-22 12:05 | disposition home or self-care (01) ==
LOC: CHSLAB 12:09
DX: M46.32 Infection of intervertebral disc (pyogenic), cervical region (principal)
CPT/HCPCS: 80053; 80202; 85025; 85652; 86140

== ENCOUNTER 2022-01-28 09:54 | Outpatient (NON) | payer OTHER, SELFPAY ==
[2022-01-28 10:13] LABS: Basophils Absolute Auto 0.03 K/mm3 (0.00-0.10); Basophils Percent Auto 0.5 % (0.0-1.0); Eosinophils Percent Auto 6.7 % (1.0-6.0); Hematocrit 38.7 % (40.0-54.0); Hemoglobin 12.4 g/dL (14.0-18.0); Immature Granulocyte Absolute 0.03 K/mm3 (0.00-0.00); Immature Granulocyte Percent A 0.5 % (0.0-0.0); Lymphocytes Absolute Auto 1.54 K/mm3 (1.10-4.50); Lymphocytes Percent Auto 25.9 % (18.0-42.0); Mean Corpuscular Hemoglobin 28.2 pg (27.0-31.0); Mean Corpuscular Volume 88.2 fL (78.0-102.0); Mean Platelet Volume 8.9 fl (8.7-11.0); Monocytes Absolute Auto 0.38 K/mm3 (0.10-0.90); Monocytes Percent Auto 6.4 % (2.0-11.0); Neutrophils Absolute Auto 3.6 K/mm3 (1.7-7.2); Platelet Count Result 446 K/mm3 (150-420); Red Blood Count 4.39 M/mm3 (4.70-6.10); Red Cell Distribution Width 12.8 % (11.6-14.4); White Blood Count 5.9 K/mm3 (4.8-10.8)
[2022-01-28 10:41] LABS: Alanine Aminotransferase 34 U/L (16-63); Albumin Level 3.4 g/dL (3.4-5.0); Alkaline Phosphatase 162 U/L (46-116); Anion Gap 5 mmol/L (8-16); Aspartate Amino Transferase 23 U/L (15-37); Bilirubin,Total 0.3 mg/dL (0.00-1.00); Blood Urea Nitrogen 12 mg/dL (7-18); CRP 6.3 mg/dL (0.0-0.9); Calcium 9.4 mg/dL (8.5-10.1); Carbon Dioxide 34 mmol/L (21-32); Chloride 104 mmol/L (98-108); Estimated Glomerular Filt Rate > 60; Glucose 110 mg/dL (70-99); Osmolality Calculated 296 mOsm/kg (285-295); Potassium 4.4 mmol/L (3.5-5.1); Sodium 143 mmol/L (136-145); Total Protein 6.9 g/dL (6.4-8.2); Vancomycin Trough 12.3 ug/mL (10.0-15.0)
[2022-01-28 11:16] LABS: Erythrocyte Sedimentation Rate 48 mm/hr (0-15)
== END 2022-01-28 09:55 | disposition home or self-care (01) ==
LOC: CHSLAB 09:58
DX: M46.32 Infection of intervertebral disc (pyogenic), cervical region (principal)
CPT/HCPCS: 80053; 80202; 85025; 85652; 86140

== ENCOUNTER 2022-02-04 11:15 | Outpatient (NON) | payer OTHER, SELFPAY ==
[2022-02-04 11:34] LABS: Basophils Absolute Auto 0.04 K/mm3 (0.00-0.10); Basophils Percent Auto 0.5 % (0.0-1.0); Eosinophils Absolute Auto 0.32 K/mm3 (0.02-0.50); Eosinophils Percent Auto 4.1 % (1.0-6.0); Hematocrit 39.7 % (40.0-54.0); Hemoglobin 12.8 g/dL (14.0-18.0); Immature Granulocyte Absolute 0.05 K/mm3 (0.00-0.00); Immature Granulocyte Percent A 0.6 % (0.0-0.0); Lymphocytes Percent Auto 24.6 % (18.0-42.0); Mean Corpuscular HGB Conc 32.2 g/dL (32.0-36.0); Mean Corpuscular Hemoglobin 28.5 pg (27.0-31.0); Mean Corpuscular Volume 88.4 fL (78.0-102.0); Mean Platelet Volume 9.1 fl (8.7-11.0); Monocytes Percent Auto 6.5 % (2.0-11.0); Neutrophils Absolute Auto 4.9 K/mm3 (1.7-7.2); Neutrophils Percent Auto 63.7 % (50.0-70.0); Platelet Count Result 459 K/mm3 (150-420); Red Blood Count 4.49 M/mm3 (4.70-6.10); Red Cell Distribution Width 12.6 % (11.6-14.4); White Blood Count 7.7 K/mm3 (4.8-10.8)
[2022-02-04 11:47] LABS: Alanine Aminotransferase 33 U/L (16-63); Albumin Level 3.9 g/dL (3.4-5.0); Alkaline Phosphatase 162 U/L (46-116); Anion Gap 7 mmol/L (8-16); Aspartate Amino Transferase 22 U/L (15-37); Bilirubin,Total 0.3 mg/dL (0.00-1.00); Blood Urea Nitrogen 14 mg/dL (7-18); CRP 1.2 mg/dL (0.0-0.9); Calcium 9.7 mg/dL (8.5-10.1); Carbon Dioxide 31 mmol/L (21-32); Chloride 102 mmol/L (98-108); Estimated Glomerular Filt Rate > 60; Glucose 65 mg/dL (70-99); Osmolality Calculated 288 mOsm/kg (285-295); Potassium 4.7 mmol/L (3.5-5.1); Sodium 140 mmol/L (136-145); Total Protein 7.7 g/dL (6.4-8.2); Vancomycin Trough 14.6 ug/mL (10.0-15.0)
[2022-02-04 12:36] LABS: Erythrocyte Sedimentation Rate 42 mm/hr (0-15)
== END 2022-02-04 11:16 | disposition home or self-care (01) ==
LOC: CHSLAB 11:25
DX: M46.32 Infection of intervertebral disc (pyogenic), cervical region (principal)
CPT/HCPCS: 80053; 80202; 85025; 85652; 86140

== ENCOUNTER 2022-02-12 11:14 | Outpatient (NON) | payer OTHER, SELFPAY ==
[2022-02-12 11:24] LABS: Basophils Absolute Auto 0.04 K/mm3 (0.00-0.10); Basophils Percent Auto 0.6 % (0.0-1.0); Eosinophils Absolute Auto 0.26 K/mm3 (0.02-0.50); Eosinophils Percent Auto 3.9 % (1.0-6.0); Hematocrit 41.2 % (40.0-54.0); Hemoglobin 13.3 g/dL (14.0-18.0); Immature Granulocyte Absolute 0.03 K/mm3 (0.00-0.00); Immature Granulocyte Percent A 0.5 % (0.0-0.0); Lymphocytes Absolute Auto 1.72 K/mm3 (1.10-4.50); Lymphocytes Percent Auto 26.1 % (18.0-42.0); Mean Corpuscular HGB Conc 32.3 g/dL (32.0-36.0); Mean Corpuscular Hemoglobin 28.3 pg (27.0-31.0); Mean Corpuscular Volume 87.7 fL (78.0-102.0); Mean Platelet Volume 9.5 fl (8.7-11.0); Monocytes Absolute Auto 0.39 K/mm3 (0.10-0.90); Monocytes Percent Auto 5.9 % (2.0-11.0); Neutrophils Absolute Auto 4.2 K/mm3 (1.7-7.2); Platelet Count Result 444 K/mm3 (150-420); Red Cell Distribution Width 12.8 % (11.6-14.4); White Blood Count 6.6 K/mm3 (4.8-10.8)
[2022-02-12 11:50] LABS: CRP < 0.5 mg/dL (0.0-0.9)
[2022-02-13 08:49] LABS: Erythrocyte Sedimentation Rate 38 mm/hr (0-15)
== END 2022-02-12 11:15 | disposition home or self-care (01) ==
LOC: CHSLAB 11:17
DX: Z51.81 Encounter for therapeutic drug level monitoring (principal)
CPT/HCPCS: 36415; 85025; 85652; 86140

== ENCOUNTER 2022-04-04 13:48 | Outpatient (RCR) | payer OTHER, SELFPAY ==
--- NOTE | 2022-04-04 15:23 | PTOPEVAL1 ---
Assessment and note entered by Sherin Huerta, PT Evaluation Information Assessment Status Evaluation Diagnosis Neck Pain, Balance, LE strength Onset 03/05/22 Subjective Information Akash Carias reports he has Tourettes and he self induces pain by punching himself or jerking his head. After several years of that, he developed a spinal cord injury and he had to have an anterior cervical fusion from C4-6 at the end of July 2021 . It was not healing well so, he had it reinforced in November 2021 to have rods placed posteriorly. At his first follow up appointment following the reinforcement, he had infection so he had to have surgery to have it cleaned out in early December 2021. He then had another surgery in early January 2022 to have a revision of the anterior and posterior C4-6 fusion. He has had trouble with gait, balance, shoulder ROM, and clonus since his surgery. He was able to walk better following the lastest surgery but still has clonus in his legs ( left > right) and left hand. He also complains of pain in the left groin that interferes with his ability to don shoes. He has been noting decreased balance when trying to pull open the refrigerator and when walking. He has left foot drop and had temporary paralysis of both his upper and lower extremities that has mostly resolved. He is using a cane with ambulation outside the home. He has not had a full fall but has had several stumbles into the wall and furniture. Reported Pain Level Pain Score 4,0: Self Report Assessment PT Clinical Summary Akash Carias presents to skilled PT following an anterior cervical fusion from C4-6 that required a posterior reinforcement. He developed infection and had to have another surgery for the infection and then a 4th surgery to perform hardware removal and revision of the C4-6 fusion. He is reporting difficulty with walking, balance, moving his head, and lifting. He is under a 5 lb lifting restriction currently. He objectively demonstrates decreased cervical AROM, decreased L > R upper extermity strength, decreased left ankle strength, impaired posture, impaired gait, decreased dynamic balance, and decreased functional abilities. Scores on the Tinetti Balance test indicate he is a high fall risk. He will benefit from skilled PT to address these limitations. Plan of Care Interventions El
--- NOTE | 2022-04-16 14:06 | OTOPEVAL1 ---
Assessment and note entered by Elizabeth Jeffery OT Evaluation Information Assessment Status Evaluation Diagnosis Cervical radiculopathy, acute Onset November 2021 Reported Pain Level Pain Score 0: Self Report Assessment OT Clinical Summary The patient is a 32 year old male who was referred to outpatient OT due to cervical radiculopathy resulting in B UE weakness, limitations in AROM, and information architect/pinch strength. The patient previously was experiencing weakness in UE prior to surgery, post surgery, the patient is now able to engage in activities and exercises following healing. The patient requires skilled OT to address current deficits and improve UE function for increased quality of life. Plan of Care Interventions Therapeutic Exercise,Manual Therapy,Neuro Re- education,Therapeutic Activities,Hot Pack/Cold Pack,Electrical Stimulation,Self-Care/Home Management OT Services Indicated Yes Treatment Frequency and 2x/week for 10 visits. Duration These treatments will address the objective and functional deficits as defined above. The patient will be advanced safely and appropriately in order for the patient to progress towards his/her prior level of function. Additional exercises will be introduced and as well as a comprehensive home exercise program upon discharge, if needed, ?to ensure carryover of functional gains achieved in the clinic. This treatment plan has been reviewed and agreement upon by the patient.
--- NOTE | 2022-05-28 17:01 | OTOPPROG ---
Assessment and note entered by Elizabeth Jeffery OT Evaluation Information Assessment Status Progress Assessment OT Clinical Summary The patient demonstrates significant progress in UE AROM, UE strength, aerographer/pinch strength, and fine motor coordination which has improved the patient's ability to perform self care tasks and engage in leisure activities. The patient continues to demonstrates slight deficits in UE endurance during therapeutic exercises, aerographer/pinch strength of L UE, UE strength in B UE for shoulders and elbows and fine motor coordination leading to decreased ability to perform small movements of the hand and affecting dexterity. The patient's goal for OT is to increase UE endurance and fine motor coordination of L UE in order to perform daily tasks and play guitar. The patient continues to require skilled OT to address deficits. Plan of Care Interventions Therapeutic Exercise,Manual Therapy,Neuro Re- education,Therapeutic Activities,Electrical Stimulation,Self-Care/Home Management,Ultrasound OT Services Indicated Yes Treatment Frequency and 2x/week for 10 visits. Duration These treatments will address the objective and functional deficits as defined above. The patient will be advanced safely and appropriately in order for the patient to progress towards his/her prior level of function. Additional exercises will be introduced and as well as a comprehensive home exercise program upon discharge, if needed, ?to ensure carryover of functional gains achieved in the clinic. This treatment plan has been reviewed and agreement upon by the patient.
--- NOTE | 2022-06-04 11:48 | BUPTOPEVAL1 ---
Assessment and note entered by JT File, PT Evaluation Information Assessment Status Progress Diagnosis Neck Pain, Balance, LE strength Onset 03/05/22 Subjective Information patient reports he feels good this date. he reports continued generalized pain. however, he reports today is a good day. he reports he is compliant with his HEP at home, but reports he still feels weak and unsteady with his balance and walking. Assessment PT Clinical Summary mr. chaney presents to skilled PT for his 13th skilled PT visit. as of this date, he is making progress towards goals, and as had no falls or additional injury. he has been performing exercises focused on his neck rom, LE strength, balance, endurance, and gait mechanics/stair mechanics. he would benefit from continued skilled PT with focus on further progression towards achievement of goals for skilled PT, and improved gait mechanics/functional mobility. Plan of Care Interventions Manual Therapy,Neuro Re-education,Patient/ Caregiver Educati,Therapeutic Activities, Therapeutic Exercise PT Services Indicated Yes Treatment Frequency and continue skilled PT 3x weekly for 11 more visits Duration per the initial POC These treatments will address the objective and functional deficits as defined above. The patient will be advanced safely and appropriately in order for the patient to progress towards his/her prior level of function. Additional exercises will be introduced and as well as a comprehensive home exercise program upon discharge, if needed, ?to ensure carryover of functional gains achieved in the clinic. This treatment plan has been reviewed and agreement upon by the patient.
--- NOTE | 2022-06-26 17:37 | OTOPPROG ---
Assessment and note entered by Elizabeth Jeffery OT Evaluation Information Assessment Status Progress Assessment OT Clinical Summary The patient demonstrates significant progress in UE strength, endurance, bioinformaticist/pinch strength, fine motor coordination affecting the patient's ability to perform daily tasks and decrease the risk of fatigue and decreased independence at home. The patient continues to demonstrate difficulties with endurance, bioinformaticist/pinch strength and fine motor coordination needed to complete daily tasks of self care and leisure activities. The patient continues to require skilled OT to address these deficits and maximize patient's independence at home. The patient was educated on the importance of finding motivating factors to engage in HEP at home, maintain good relationships and participate in work in order to maintain good quality of life. Plan of Care Interventions Therapeutic Exercise,Manual Therapy,Neuro Re- education,Therapeutic Activities,Hot Pack/Cold Pack,Electrical Stimulation,Sensory Integrative Techn,Self-Care/Home Management OT Services Indicated Yes Treatment Frequency and 1x/week for 10 visits. Duration These treatments will address the objective and functional deficits as defined above. The patient will be advanced safely and appropriately in order for the patient to progress towards his/her prior level of function. Additional exercises will be introduced and as well as a comprehensive home exercise program upon discharge, if needed, ?to ensure carryover of functional gains achieved in the clinic. This treatment plan has been reviewed and agreement upon by the patient.
--- NOTE | 2022-07-11 14:56 | PTOPREEVAL ---
Assessment and note entered by Cathy Puente DPT Evaluation Information Assessment Status Re-evaluation Diagnosis Neck Pain, Balance, LE strength Onset 03/05/22 Subjective Information Patient reports compliance with HEP. He reports he remembers tripping a few weeks ago but denies any falls. He reports he would like to continue to improve his gait to be able to go on walks as weather improves Reported Pain Level Pain Score 4: Self Report Assessment PT Clinical Summary Patient has been seen for 11 visits since last progress note. Patient made good progress in goals with improved Tinetti and 5x STS testing indicating decreased fall risk. Patient is able to complete 700ft during 6 minute walk test this date. He would benefit from continued skilled PT to improve gait mechanics and functional mobility Plan of Care Interventions Manual Therapy,Neuro Re-education,Patient/ Caregiver Educati,Therapeutic Activities, Therapeutic Exercise PT Services Indicated Yes Treatment Frequency and Continue skilled PT 2x weekly for 10 visits Duration These treatments will address the objective and functional deficits as defined above. The patient will be advanced safely and appropriately in order for the patient to progress towards his/her prior level of function. Additional exercises will be introduced and as well as a comprehensive home exercise program upon discharge, if needed, ?to ensure carryover of functional gains achieved in the clinic. This treatment plan has been reviewed and agreement upon by the patient.
== END 2022-07-16 14:12 | disposition still patient (30) ==
LOC: CHSPT 13:48
DX: M54.12 Radiculopathy, cervical region (principal); M54.2 Cervicalgia; R29.898 Other symptoms and signs involving the musculoskeletal system
CPT/HCPCS: 97110; 97112; 97116; 97140; 97162; 97165; 97530; 97750

== ENCOUNTER 2022-05-16 14:41 | Outpatient (CLI) | payer OTHER, SELFPAY ==
--- NOTE | ~2022-05-16 | XR_ITS ---
XR_CERV2-3V_CR DATE: 05/16/2022 15:08 INDICATION: Acute cervical radiculopathy. C2-C7 fusion in January,. TECHNIQUE: AP, lateral, open-mouth views COMPARISON: 12/17/2021 cervical spine FINDINGS: There is revision of anterior and posterior cervical spine fusion between 05/16/2022 and 11/27. Prior anterior and posterior surgical fusion hardware was replaced with anterior plate and screws ext ending from C3-C7, with spacer devices between C4 and C6. Posterior C3-C7 rods and screws were replaced with larger rods and screws from C2-C7. C1 and C2 are normally aligned and the odontoid process is intact. Chronic mild anterolisthesis at C2 -3. IMPRESSION: Status post anterior and posterior surgical fusion at C2-C7 Reviewed, dictated and finalized at Location A. Reviewed, dictated and finalized at location L. ENT ENGINEER
== END 2022-05-16 14:42 | disposition home or self-care (01) ==
LOC: CHSIMG 14:44
DX: M54.12 Radiculopathy, cervical region (principal); Z98.1 Arthrodesis status
CPT/HCPCS: 72040

== ENCOUNTER 2022-05-23 14:26 | Outpatient (CLI) | payer OTHER, SELFPAY ==
--- NOTE | ~2022-05-23 | XR_ITS ---
XR hip LT 2V w AP pelvis 05/23/2022 14:56 Indication: Left hip pain for 6 months Procedure: 4 views left hip including AP pelvis Comparison: No prior studies for comparison. Findings: There is mild osteoarthritis of the left hip. Pelvic rings are intact. Sacral foramen are s ymmetric. No acute fracture or traumatic malalignment. Impression: 1: Mild osteoarthritis of the left hip. Reviewed, dictated and finalized at location A. IZATION COORDINATOR Impression: 1: Mild osteoarthritis of the left hip.
== END 2022-05-23 14:27 | disposition home or self-care (01) ==
LOC: CHSIMG 14:30
DX: M25.552 Pain in left hip (principal); M16.12 Unilateral primary osteoarthritis, left hip
CPT/HCPCS: 73502

== ENCOUNTER 2022-07-03 12:31 | Outpatient (CLI) | payer OTHER, SELFPAY ==
[2022-07-03 12:54] LABS: Basophils Absolute Auto 0.03 K/mm3 (0.00-0.10); Basophils Percent Auto 0.4 % (0.0-1.0); Eosinophils Percent Auto 2.7 % (1.0-6.0); Hemoglobin 14.1 g/dL (14.0-18.0); Immature Granulocyte Absolute 0.05 K/mm3 (0.00-0.00); Immature Granulocyte Percent A 0.7 % (0.0-0.0); Lymphocytes Absolute Auto 1.69 K/mm3 (1.10-4.50); Lymphocytes Percent Auto 22.5 % (18.0-42.0); Mean Corpuscular HGB Conc 33.6 g/dL (32.0-36.0); Mean Corpuscular Hemoglobin 29.1 pg (27.0-31.0); Mean Corpuscular Volume 86.6 fL (78.0-102.0); Mean Platelet Volume 9.1 fl (8.7-11.0); Monocytes Absolute Auto 0.45 K/mm3 (0.10-0.90); Neutrophils Absolute Auto 5.1 K/mm3 (1.7-7.2); Neutrophils Percent Auto 67.7 % (50.0-70.0); Platelet Count Result 331 K/mm3 (150-420); Red Blood Count 4.85 M/mm3 (4.70-6.10); Red Cell Distribution Width 13.4 % (11.6-14.4); White Blood Count 7.5 K/mm3 (4.8-10.8)
[2022-07-03 13:27] LABS: Alanine Aminotransferase 32 U/L (16-63); Alkaline Phosphatase 153 U/L (46-116); Anion Gap 6 mmol/L (8-16); Aspartate Amino Transferase 39 U/L (15-37); Bilirubin,Total 0.4 mg/dL (0.00-1.00); Blood Urea Nitrogen 13 mg/dL (7-18); Calcium 9.4 mg/dL (8.5-10.1); Carbon Dioxide 33 mmol/L (21-32); Chloride 103 mmol/L (98-108); Estimated Glomerular Filt Rate > 60; Glucose 102 mg/dL (70-99); Osmolality Calculated 294 mOsm/kg (285-295); Potassium 4.5 mmol/L (3.5-5.1); Sodium 142 mmol/L (136-145); Total Protein 7.7 g/dL (6.4-8.2)
== END 2022-07-03 12:32 | disposition home or self-care (01) ==
LOC: CHSLAB 12:39
DX: T81.49XA Infection following a procedure, other surgical site, initial encounter (principal); Z79.2 Long term (current) use of antibiotics; A49.9 Bacterial infection, unspecified
CPT/HCPCS: 36415; 80053; 85025

== ENCOUNTER 2022-07-23 14:15 | Outpatient (RCR) | payer OTHER, SELFPAY ==
--- NOTE | 2022-09-04 21:34 | PTOPDC ---
Assessment and note entered by JT File, PT Evaluation Information Assessment Status Discharge Diagnosis Neck Pain, Balance, LE strength Onset 03/05/22 Subjective Information patient report she is doing well. he reports he has not been back to a gym, but reports he has some weights at home he has been using. he reports he would like to get a little bit stronger prior to trying to return to a gym. Reported Pain Level Pain Score 0: Self Report Assessment PT Clinical Summary mr. chaney presents to skilled PT services today for treatment and re-evaluation of progress towards goals during his current POC. he has made progress in strength, balance, and functional lifting over this last POC. he does continue to display deficits in gait mechanics. however, as of this date, he displays safe posture and body mechanics with exercises/activities to continue HEP independent at home. he will DC from skilled PT today, and follow up with MD and PT as needed in the future. Plan of Care PT Services Indicated Yes
== END 2022-09-05 07:50 | disposition home or self-care (01) ==
LOC: CHSPT 14:15
DX: M54.12 Radiculopathy, cervical region (principal); R29.898 Other symptoms and signs involving the musculoskeletal system; M54.2 Cervicalgia
CPT/HCPCS: 97112; 97530; 97750

== ENCOUNTER 2022-09-30 15:22 | Outpatient (CLI) | payer OTHER, SELFPAY ==
[2022-09-30 15:43] LABS: Basophils Absolute Auto 0.04 K/mm3 (0.00-0.10); Basophils Percent Auto 0.6 % (0.0-1.0); Eosinophils Absolute Auto 0.18 K/mm3 (0.02-0.50); Eosinophils Percent Auto 2.6 % (1.0-6.0); Hematocrit 42.6 % (40.0-54.0); Hemoglobin 14.2 g/dL (14.0-18.0); Immature Granulocyte Absolute 0.02 K/mm3 (0.00-0.00); Immature Granulocyte Percent A 0.3 % (0.0-0.0); Lymphocytes Absolute Auto 1.49 K/mm3 (1.10-4.50); Lymphocytes Percent Auto 21.8 % (18.0-42.0); Mean Corpuscular HGB Conc 33.3 g/dL (32.0-36.0); Mean Corpuscular Hemoglobin 29.3 pg (27.0-31.0); Mean Platelet Volume 8.9 fl (8.7-11.0); Monocytes Absolute Auto 0.38 K/mm3 (0.10-0.90); Monocytes Percent Auto 5.6 % (2.0-11.0); Neutrophils Absolute Auto 4.7 K/mm3 (1.7-7.2); Neutrophils Percent Auto 69.1 % (50.0-70.0); Platelet Count Result 360 K/mm3 (150-420); Red Blood Count 4.84 M/mm3 (4.70-6.10); Red Cell Distribution Width 12.8 % (11.6-14.4); White Blood Count 6.8 K/mm3 (4.8-10.8)
[2022-09-30 16:29] LABS: Alanine Aminotransferase 33 U/L (16-63); Albumin Level 3.7 g/dL (3.4-5.0); Alkaline Phosphatase 144 U/L (46-116); Anion Gap 8 mmol/L (8-16); Aspartate Amino Transferase 23 U/L (15-37); Bilirubin,Total 0.5 mg/dL (0.00-1.00); Blood Urea Nitrogen 10 mg/dL (7-18); Calcium 9.4 mg/dL (8.5-10.1); Carbon Dioxide 31 mmol/L (21-32); Chloride 103 mmol/L (98-108); Estimated Glomerular Filt Rate > 60; Glucose 108 mg/dL (70-99); Osmolality Calculated 294 mOsm/kg (285-295); Potassium 4.3 mmol/L (3.5-5.1); Sodium 142 mmol/L (136-145); Total Protein 7.3 g/dL (6.4-8.2)
[2022-09-30 16:33] LABS: CRP < 0.5 mg/dL (0.0-0.9)
[2022-09-30 16:57] LABS: Erythrocyte Sedimentation Rate 26 mm/hr (0-15)
== END 2022-09-30 15:23 | disposition home or self-care (01) ==
LOC: CHSLAB 15:31
DX: T84.7XXA Infection and inflammatory reaction due to other internal orthopedic prosthetic devices, implants and grafts, initial encounter (principal)
CPT/HCPCS: 36415; 80053; 85025; 85652; 86140

== ENCOUNTER 2022-10-12 16:47 | Emergency (ER) | payer OTHER, SELFPAY ==
--- NOTE | ~2022-10-12 | XR_ITS ---
XR ankle RT min 3V 10/12/2022 17:40 INDICATION: Right ankle pain PROCEDURE: 4 views right ankle COMPARISON: No prior studies for comparison. FINDINGS: Fracture, dislocation or subluxation is not identified. There is mild lateral soft tissue s welling. Ankle mortise intact. Talar dome is normal. No foreign bodies are identified. IMPRESSION: 1: NO ACUTE BONE OR JOINT ABNORMALITY IDENTIFIED. Reviewed, dictated and finalized at location A.
--- NOTE | ~2022-10-12 | XR_ITS ---
XR shoulder LT min 2V 10/12/2022 17:41 Indication: Left shoulder pain Procedure: 4 views left shoulder Comparison: No prior studies for comparison. Findings: No fracture, subluxation or dislocation. No significant soft tissue abnormality. No foreign bodies. Impression: 1: No acute bone or joint abnormality. Reviewed, dictated and finalized at location A. Impression: 1: No acute bone or joint abnormality.
[2022-10-12 16:47] VITALS: BP 117/88; PULSE 103; RESP 18; TEMP 37; O2SAT 95
--- NOTE | 2022-10-12 17:05 | PC.NURSE ---
patient smokes marijuana daily
--- NOTE | 2022-10-12 17:19 | ED.GENADULT ---
HPI - General Adult General Chief complaint: Back Pain/Injury Stated complaint: right ankle pain and left shoulder pain History of Present Illness HPI narrative: This is a 32-year-old male with history spinal cord injury presenting with left shoulder and right ankle pain. Patient has bits to [place] from his spinal cord injury and has frequent falls. On Friday was walking to his garden when he fell on his shoulder. He has been going about his daily activities living but has had some discomfort swelling of his right ankle and left shoulder. No other injuries. The patient states that he has decreased sensation and just wants to make sure that nothing is seriously injured. Related Data Home Medications Medication Instructions Recorded Confirmed clonazepam 1 mg tablet 5 mg PO TID 08/25/20 10/12/22 cyclobenzaprine 10 mg tablet 10 mg PO BID 08/25/20 10/12/22 doxepin 25 mg capsule 25 mg PO HS 08/25/20 10/12/22 paroxetine HCl 40 mg tablet 60 mg PO DAILY 08/25/20 10/12/22 albuterol sulfate 90 mcg/actuation 90 mcg inhalation PRN PRN Wheezing 06/05/21 10/12/22 aerosol inhaler (Ventolin HFA) atenolol 50 mg tablet 50 mg PO DAILY 06/05/21 10/12/22 Allergies Allergy/AdvReac Type Severity Reaction Status Date / Time No Known Allergies Allergy Verified 06/05/21 10:35 REPLACED BY [facility] Past Medical History Medical History Cervical vertebral fusion Fibromyalgia Syncopal episodes Tourette syndrome Surgical History Surgical History No significant past surgical history Family History Family History Mother COPD (chronic obstructive pulmonary disease) Father Colon cancer Social History Social History Smoking status: Never smoker Alcohol intake: never Substance use type: marijuana Living arrangements: with family Exam Narrative: APPEARANCE: No apparent distress. Head: atraumatic. EYES: EOMI, NOSE: Atraumatic NECK: Wide posterior surgical scar RESPIRATORY: No increased rate of breathing CARDIOVASCULAR: RRR, ABDOMINAL: Non-distended MUSCULOSKELETAl: focal exam of the right lower extremity revealed some mild bruising and swelling along the lateral ankle. no point tenderness. Cap refill less than 2 seconds. Exam of the left upper extremity revealed no areas of tenderness, swelling bruising deformity. Pulses are +2. Patient has decreased function of the left hand from his spinal cord injury but is able to give a thumbs-up squeezes fist and spread his fingers against resistance. NEURO: Alert. Moving 4/4 extremities SKIN:: Warm, dry. Normal color PSYCHIATRIC: Normal affect Course Vital Signs Vital signs: Vital Signs Temperature 98.6 F 10/12/22 16:47 Pulse Rate 103 H 10/12/22 16:47 Respiratory Rate 18 10/12/22 16:47 Blood Pressure 117/88 10/12/22 16:47 Pulse Oximetry 95 10/12/22 16:47 Oxygen Delivery Room Air 10/12/22 16:47 Temperature 98.6 F 10/12/22 16:47 Pulse Rate 103 H 10/12/22 16:47 Respiratory Rate 18 10/12/22 16:47 Blood Pressure 117/88 10/12/22 16:47 Pulse Oximetry 95 10/12/22 16:47 Oxygen Delivery Room Air 10/12/22 16:47 Medical Decision Making MDM Narrative Medical decision making narrative: -Presentation: 32-year-old male presenting with right ankle and left shoulder pain. -DDX includes but is not limited to: Ankle sprain, ankle fracture, soft tissue injury shoulder, fibromyalgia -Co-morbidities complicating care: fibromyalgia history of spinal cord injury multiple neurologic disabilities -Social determinants of health: disabled, lives his mother Ranjana -External Chart Review: review of infectious disease notes from December of 2021 -Hx from independent Sources: mother bedside -Discussion of Management/Consultants: none -
[2022-10-12 17:55] VITALS: BP 116/68; PULSE 80; RESP 20; TEMP 36.6; O2SAT 98
== END 2022-10-12 17:56 | disposition home or self-care (01) ==
PROVIDERS: Emergency Provider Emergency Medicine
DX: S93.401A Sprain of unspecified ligament of right ankle, initial encounter (principal); M25.512 Pain in left shoulder; W19.XXXA Unspecified fall, initial encounter
CPT/HCPCS: 73030; 73610; 99284

== ENCOUNTER 2022-11-14 13:32 | Outpatient (CLI) | payer OTHER, SELFPAY ==
--- NOTE | ~2022-11-14 | XR_ITS ---
EXAM: [id number]_CR DATE: 11/14/2022 13:49 HISTORY: Cervical Radiculopathy/surgery x1 year prior . COMPARISON: 05/16/2022. FINDINGS: Craniocervical association and atlantoaxial joint are aligned, and demonstrate mild degene rative change. No prevertebral soft tissue swelling. 9 mm anterolisthesis of C2 on 3. ACDF fusion fro m C3 to C7. Interbody device spanning C4-C6. Posterior fusion hardware spanning C2-C7. No hardware fr acture or perihardware lucency. IMPRESSION: Stable grade 2 anterolisthesis at C2-3. Extensive posterior and anterior cervical hardwar e fusion. No radiographic evidence of hardware related consultation. Reviewed, dictated and finalized at location K. IMPRESSION: Stable grade 2 anterolisthesis at C2-3. Extensive posterior and ant erior cervical hardware fusion. No radiographic evidence of hardware related co nsultation.
== END 2022-11-14 13:33 | disposition home or self-care (01) ==
LOC: CHSIMG 13:34
DX: M54.12 Radiculopathy, cervical region (principal); Z98.1 Arthrodesis status; M43.12 Spondylolisthesis, cervical region
CPT/HCPCS: 72040

== ENCOUNTER 2023-04-23 14:37 | Outpatient (CLI) | payer MEDICARE, MEDICAID, SELFPAY ==
[2023-04-23 14:56] LABS: Basophils Absolute Auto 0.05 K/mm3 (0.00-0.10); Basophils Percent Auto 0.8 % (0.0-1.0); Eosinophils Absolute Auto 0.26 K/mm3 (0.02-0.50); Eosinophils Percent Auto 3.9 % (1.0-6.0); Hematocrit 43.2 % (40.0-54.0); Hemoglobin 14.5 g/dL (14.0-18.0); Immature Granulocyte Absolute 0.02 K/mm3 (0.00-0.00); Immature Granulocyte Percent A 0.3 % (0.0-0.0); Lymphocytes Absolute Auto 1.69 K/mm3 (1.10-4.50); Lymphocytes Percent Auto 25.5 % (18.0-42.0); Mean Corpuscular HGB Conc 33.6 g/dL (32.0-36.0); Mean Corpuscular Hemoglobin 30.1 pg (27.0-31.0); Mean Corpuscular Volume 89.6 fL (78.0-102.0); Mean Platelet Volume 9.2 fl (8.7-11.0); Monocytes Absolute Auto 0.46 K/mm3 (0.10-0.90); Monocytes Percent Auto 6.9 % (2.0-11.0); Neutrophils Absolute Auto 4.2 K/mm3 (1.7-7.2); Neutrophils Percent Auto 62.6 % (50.0-70.0); Platelet Count Result 332 K/mm3 (150-420); Red Blood Count 4.82 M/mm3 (4.70-6.10); Red Cell Distribution Width 12.5 % (11.6-14.4); White Blood Count 6.6 K/mm3 (4.8-10.8)
[2023-04-23 15:43] LABS: Alanine Aminotransferase 35 U/L (16-63); Albumin Level 3.8 g/dL (3.4-5.0); Alkaline Phosphatase 122 U/L (46-116); Anion Gap 4 mmol/L (8-16); Aspartate Amino Transferase 19 U/L (15-37); Bilirubin,Total 0.6 mg/dL (0.00-1.00); Blood Urea Nitrogen 17 mg/dL (7-18); Calcium 9.6 mg/dL (8.5-10.1); Carbon Dioxide 35 mmol/L (21-32); Chloride 101 mmol/L (98-108); Estimated Glomerular Filt Rate > 60; Glucose 104 mg/dL (70-99); Osmolality Calculated 291 mOsm/kg (285-295); Potassium 4.4 mmol/L (3.5-5.1); Sodium 140 mmol/L (136-145); Total Protein 7.4 g/dL (6.4-8.2)
== END 2023-04-23 14:38 | disposition home or self-care (01) ==
LOC: CHSLAB 14:43
DX: Z51.81 Encounter for therapeutic drug level monitoring (principal); Z79.2 Long term (current) use of antibiotics
CPT/HCPCS: 36415; 80053; 85025

== ENCOUNTER 2023-07-07 12:08 | Outpatient (CLI) | payer MEDICARE, MEDICAID, SELFPAY ==
--- NOTE | ~2023-07-07 | XR_ITS ---
AP view of the pelvis and AP and lateral views of the left hip Clinical history: Pain Findings: No acute fracture or dislocation is seen. Osseous alignment is anatomic. Minimal degenerati ve change of both hip joints noted. Soft tissues are unremarkable. Impression: Minimal degenerative change of both hip joints. Reviewed, dictated and finalized at location . Impression: Minimal degenerative change of both hip joints.
== END 2023-07-07 12:09 | disposition home or self-care (01) ==
LOC: CHSIMG 12:13
DX: M25.552 Pain in left hip (principal)
CPT/HCPCS: 73502

== ENCOUNTER 2024-08-17 17:42 | Outpatient (CLI) | payer MEDICARE, MEDICAID, SELFPAY ==
[2024-08-17 18:03] LABS: Basophils Absolute Auto 0.04 K/mm3 (0.00-0.10); Basophils Percent Auto 0.6 % (0.0-1.0); Eosinophils Absolute Auto 0.23 K/mm3 (0.02-0.50); Eosinophils Percent Auto 3.6 % (1.0-6.0); Hematocrit 41.2 % (40.0-54.0); Hemoglobin 13.7 g/dL (14.0-18.0); Immature Granulocyte Absolute 0.02 K/mm3 (0.00-0.00); Immature Granulocyte Percent A 0.3 % (0.0-0.0); Lymphocytes Absolute Auto 1.24 K/mm3 (1.10-4.50); Lymphocytes Percent Auto 19.3 % (18.0-42.0); Mean Corpuscular HGB Conc 33.3 g/dL (32-36); Mean Corpuscular Volume 87.1 fL (78.0-102.0); Mean Platelet Volume 9.1 fl (8.7-11.0); Monocytes Absolute Auto 0.34 K/mm3 (0.10-0.90); Monocytes Percent Auto 5.3 % (2.0-11.0); Neutrophils Absolute Auto 4.54 K/mm3 (1.70-7.20); Neutrophils Percent Auto 70.9 % (50.0-70.0); Platelet Count Result 325 K/mm3 (150-420); Red Blood Count 4.73 M/mm3 (4.70-6.10); White Blood Count 6.4 K/mm3 (4.8-10.8)
--- OUTSIDE RECORDS SUMMARY | 2024-08-17 18:29 | XMS_ITS | Clinical Summary ---
Author Organization [facility] Address [address] [place] [address] Phone Care Team Providers Care Hot Metal Charger Name Role Phone Unavailable Primary Care Provider Unavailabl e Allergies No known active allergies Medications oxyCODONE-acetam inophen (PERCOCET) 5-325 mg tablet Take 1-2 Tabs by mouth every 4 hours as needed for Pain, Severe. 20 Tab None 11/18/2013 Active cyclobenzaprine (FLEXERIL) 10 mg tablet Take 1 Tab by mouth 3 times daily as needed for Spasm. 30 Tab 0 11/18/2013 Active Active Problems Problem Noted Date Diagnosed Date Musculoskeletal pain 11/18/2013 Back pain 11/18/2013 Social History Tobacco Use Types Packs/Day Years Used Date Smoking Tobacco: Never Assessed Sex and Gender Information Value Date Recorded Sex Assigned at Not on file Legal Sex Male 12:38 PM CDT Gender Identity Not on file Sexual Orientation Not on file Last Filed Vital Signs Vital Sign Reading Time Taken Comments Blood Pressure 119/69 11/18/2013 1:50 PM CDT Pulse - - Temperature 36.7 C (98.1 F) 11/18/2013 12:53 PM CDT Respiratory Rate 22 11/18/2013 1:30 PM CDT Oxygen Saturation 95% 11/18/2013 1:50 PM CDT Inhaled Oxygen Concentration - - Weight - - Height - - Body Mass Index - - Plan of Treatment Health Maintenance Due Date Last Done Comments DTAP/TDAP/TD VACCINES (1 - Tdap) 2009 HEPATITIS B VACCINES (1 of 3 - 19+ 3-dose series) 2009 INFLUENZA VACCINE (#1) 2023 HPV VACCINES Aged Out No longer eligi ble based on patient's age to complete this topic
--- OUTSIDE RECORDS SUMMARY | 2024-08-17 18:30 | XMS_ITS | Referral Summary ---
Author Organization [facility] Address [address] [place] [address] Care Team Providers Care Material Controller Name Role Phone Thai Lopez MD Primary Care Provider Piper Casanova OT Unavailable [phone] Allergies No known active allergies Medications PARoxetine (PAXIL) 20 mg tablet Take 20 mg by mouth every morning 11/14/2020 Active cyclobenzaprine (FLEXERIL) 10 mg tablet 10 mg 2 (two) times a day as needed 11/14/2020 Active doxepin (SINEquan) 25 mg capsule Take 25 mg by mouth nightly 11/14/2020 Active clonazePAM (KlonoPIN) 1 mg tablet 1.5 in am 2 @12 1.5 pm 11/14/2020 Active Ventolin HFA 90 mcg/actuation inhaler Inhale 1 puff every 6 (six) hours as needed 11/09/[address] (CYMBALTA) 60 mg capsuleIndicati ons:Tourettes syndrome Take 1 capsule (60 mg total) by mouth daily 90 capsule 2 02/07/2021 Active Active Problems Problem Noted Date Diagnosed Date Tourettes syndrome 12/06/2020 Assessment & Plan (12/06/2020 4:24 PM CDT): He has motor and phonic tics, starting in childhood, which have generally worsened with age. He meets criteria for Tourette syndrome at this point. However, given his atypical course, we will check some labs for alternative causes of tics. Currently, his motor tics are causing damage to his cervical spine and he already exhibits some early signs of spinal cord trauma, such as hyperreflexia and mild hand weakness. Orthopedic surgery recommends surgery but is hesitant given the severity of his tics, which I agree with. He has failed numerous medications at this point, only achieving modest relief with cannabis. The last class of medications that is evidence- based for TS is the VMAT inhibitors. We will prescribe a titration of tetrabenazine for him and see if this is helpful. Additionally, we will refer him for CBIT. If these are ineffective, we may need to consider whether to send him to a center that does DBS for Tourette syndrome. 1. Tetrabenazine uptitration, goal dose 25 mg TID 2. CBIT referral 3. Counseled him to minimize clonazepam and cyclobenzaprine 4. TSH, ASO titer, ceruloplasmin 5. 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 Gender Identity Male 02/26/2021 12:59 PM CDT Sexual Orientation Straight 02/26/2021 12 :59 PM CDT Last Filed Vital Signs Vital Sign Reading Time Taken Comments Blood Pressure 145/96 12/06/2020 1:10 PM CDT Pulse 120 12/06/2020 1:10 PM CDT Temperature 36.6 C (97.9 F) 12/06/2020 1:10 PM CDT Respiratory Rate - - Oxygen Saturation - - Inhaled Oxygen Concentration - - Weight 116.1 kg (256 lb) 12/06/2020 1:10 PM CDT Height 180.3 cm (5' 11 ) 12/06/2020 1:10 PM CDT Body Mass Index 35.7 12/06/2020 1:10 PM CDT Plan of Treatment Not on file Insurance [facility] [place] [address] [place] [id number] Care Teams Material Controller Relationship Specialty Start Date End Date Thai Lopez MD PCP - General Internal Medicine 08/10/20 Piper Casanova OT Occupational Therapist Occupational Therapy 02/21/21
--- OUTSIDE RECORDS SUMMARY | 2024-08-17 18:30 | XMS_ITS | Encounter Summary ---
Author Organization [facility] Address [address] [place] [address] Care Team Providers Care Appliance Adjuster Name Role Phone Thai Lopez MD Primary Care Provider Richard Whitt DO Primary Care Provider Aleksandra perry Encounter Details Date Type Department Care Team (Late st Contact Info) Description 10/03/2018 Abstract SFL CONVERSION [address] [place] [address] , Generic MD Ankit Social History Tobacco Use Types Packs/Day Years Used Date Smoking Tobacco: Never Assessed Sex and Gender Information Value Date Recorded Sex Assigned at Not on file Legal Sex Male 8:54 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
--- OUTSIDE RECORDS SUMMARY | 2024-08-17 18:30 | XMS_ITS | Clinical Summary ---
Author Organization [facility] Address [address] [place] [address] Care Team Providers Care Assistant Maintenance Manager Name Role Phone Thai Lopez MD Primary Care Provider Piper Casanova OT Unavailable [phone] Allergies No known active allergies Medications [...] titer, ceruloplasmin 5. Return in 6 months Family History Medical History Relation Name Comments Autism Father Relation Name Status Comments Father Social History Tobacco Use Types Packs/Day Years Used Date Smoking Tobacco: Never Personal Safety Answer Date Recorded Getting School Help Needed Not on file 06/22 Sex and Gender Information Value Date Recorded Sex Assigned at Not on file Legal Sex Male 4:51 AM INSOLE BOTTOM FILLER Gender Identity Male 02/26/2021 12:59 PM CDT Sexual Orientation Straight 02/26/2021 12 :59 PM CDT Obstetrics History Last Filed Vital Signs Vital Sign Reading [...] Plan of Treatment Not on file Insurance [facility] [place] Care Teams Assistant Maintenance Manager Relationship Specialty Start Date End Date Thai Lopez MD PCP - General Internal Medicine 08/10/20 Piper Casanova OT Occupational Therapist Occupational Therapy 02/21/21
--- OUTSIDE RECORDS SUMMARY | 2024-08-17 18:30 | XMS_ITS | Clinical Summary ---
Author Organization [facility] Address [address] [place] [address] Care Team Providers Care Budget Director Name Role Phone Whitt Richard Yohannes FENTON Primary Care Provider Unavai lable Allergies No known active allergies Medications VENTOLIN HFA 108 (90 Base) MCG/ACT inhaler 09/08/2020 Act robbie clonazePAM 1 MG tablet 09/19/2020 Active cyclobenzaprine 10 MG tablet 09/19/2020 Active doxepin 25 MG capsule 09/19/2020 Active DULoxetine 20 MG capsule 09/11/2020 Active ketorolac 10 MG tablet 08/26/2020 Active PARoxetine 40 MG tablet 09/19/2020 Active atenolol 50 MG tablet Take 50 mg by mouth daily. Active gabapentin 300 MG capsule Take 300 mg by mouth 3 (three) times daily. 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 Gender Identity Not on file Sexual Orientation Not on file Last Filed Vital Signs Vital Sign Reading Time Taken Comments Blood Pressure 122/85 08/27/2021 8:36 PM CDT Pulse 84 08/27/2021 8:36 PM CDT Temperature 36.3 C (97.3 F) 08/27/2021 8:36 PM CDT Respiratory Rate 18 08/27/2021 8:36 PM CDT Oxygen Saturation 98% 08/27/2021 8:36 PM CDT Inhaled Oxygen Concentration - - Weight 110.7 kg (244 lb) 08/27/2021 4:16 PM CDT Height 177.8 cm (5' 10 ) 08/18/2021 6:39 PM CDT Body Mass Index 35.01 08/18/2021 6:39 PM CDT Plan of Treatment Health Maintenance Due Date Last Done Comments Annual Physical 1993 Hepatitis C 2008 DTaP, Tdap and Td Vaccines (2 - Tdap) 2009 02/02/1997, 02/09/1996, 05/21/1994, Additional history exists Hepatitis B Vaccines (1 of 3 - 19+ 3-dose series) 2009 COVID-19 Vaccine (2023- season) 2023 HPV Vaccines Aged Out No longer eligi ble based on patient's age to complete this topic Meningococcal B Vaccine Aged Out No l onger eligible based on patient's age to complete this topic Meningococcal Vaccine Aged Out No karl marcelina eligible based on patient's age to complete this topic Pneumococcal Vaccine: Pediatrics (0 to 5 Years) and At-Risk Patients (6 to 49 Years) Aged Out No longer eligible based on patient's age to complete this topic RSV Immunizations Under 20 Months Aged Out No longer eligible based on patient's age to complete this topic Insurance MEDICAID MEDICARE Care Teams Budget Director Relationship Specialty Start Date End Date Richard Whitt DO PCP - General FAMILY PRACTICE 08/18/21
--- OUTSIDE RECORDS SUMMARY | 2024-08-17 18:30 | XMS_ITS | Data Portability ---
Author Organization [facility], [address] ([place]) Address [address] [place] [address] Care Team Providers Care Door Framer Name Role Phone JOEL GREEN Primary Care Provider [phone] Assessment Encounter Date Assessment Date Assessment LastModified by Organization Details LastModified Time 05/10/2024 05/10/2024 PMH: Hypertension, depression, anxiety, Tourette's, obsessive-compul sive, history of postoperative wound infection 1. Tourette's Patient follows with [facility]. Patient's current medication regiment is clonazepam, Flexeril, doxepin, duloxetine, gabapentin, medical cannabis, and paroxetine. 2. Depression/Anxie ty Depression/Anxie ty is stable on current medication regimen of clonazepam, doxepin, Cymbalta, and paroxetine. No medication changes at this time. Patient denies active suicidal thoughts or ideations. No plan or intent. Reviewed possible side effects of and expected benefits of medication. Should any changes arise, or dosing changes be requested, they are to contact us at that time. Patient follows with counseling 3. Hypertension Hypertension is stable under the current medication regimen of atenolol. No medication changes at this time. Recommend continuing to monitor home blood pressure readings. Request that they report changes in numbers or problems with medication. Discussed continued lifestyle modifications for weight and blood pressure. 4. Cervical myelopathy Patient follows with Dr. Deal. No current needs. Patient has had 4 recent neck surgeries. Patient follows with urology due to poor bladder emptying. 5. Postoperative wound infection Patient follows with infectious disease. Patient will continue suppressive p.o. cefadroxil 500 mg every 12 hours indefinitely given ongoing hardware. Follow-up in 6 months [id number] Not available 05/10/2024 15:23:38 Plan of Treatment Reminders Order Date Submit Date Provider Last Modified By Organization Details Last Modified Time Details Appointments TeleHealt h 20.TELE 2024 01:00P M Dr. Sharon Ponce Not available Not available Not available Establish ed Patient 20.EST 2024 01:20P M Dr. Joel Green Not available Not available Not available Lab None recorded. Referral None recorded. Procedures None recorded. Surgeries None recorded. Imaging None recorded. Medication Orders atenolol 50 mg tablet 2024 025 [id number], [address], [place], [id number], 05/10/2024 15:27:33 Patient TargetsNo targets recorded. Patient InstructionsNo instructions recorded. Reason for Referral None Reported. Problems Name Problem SNOMED Code Status Onset Date Resolution Date Notes Provider Name and Address Organization Details Recorded Time Essential hypertens ion 75184241 Active 2023 Joel Green MD [address] [place] [address], [phone], [facility] 4 13:57:28 Depressiv e disorder 82937657 Active 2023 Joel Green MD [address] [place] [address], [phone], [facility] 4 13:57:35 Anxiety 10012369 Active 2023 Joel Green MD [address] [place] [address], [phone], [facility] 4 13:57:41 Postopera tive wound infection 73071403 Completed 202311/27/2023 Joel Green MD [address] [place] [address], [phone], [facility] 4 13:58:13 Infection AND/OR inflammat ory reaction due to internal prostheti c device, implant AND/OR graft 77910259 Active 2023 [facility] 5 12:21:45 Pain of left hip joint 750344980289 100 Active 2023 Haider Ralhp MD [address] [place] [address], [phone], [facility] 4 22:16:01 Long-term current use of antibioti c 793877000 Active [facility] 4 11:16:40 Cervical radiculop athy 47747940 Active 2023 Jody Tapia [facility] 4 10:09:56 Problem Notes None recorded. Medical Equipment None Reported. Allergies Allergen ID Allergen Name Allergen Category Reaction Reaction Severity Criticality Documentation Date Start Date Code Code System Note Provider Name and Address Organization Details Recorded Time 751585 doxycycli ne monohydra te medicatio n nausea Not available Not available 05/26/20232021 2 RxNorm Not Available Not Available Not Available Medications Name Sig Start Date Stop Date Status Note LastModified by Organization Details LastModified Time cyclobenzap rine 10 mg tablet TAKE 1 TABLET BY MOUTH TWICE DAILY active Not Available Not Available No t Available doxepin 50 mg capsule TAKE 1 CAPSULE BY MOUTH AT BEDTIME active Not Available Not Available No t Available paroxetine 10 mg tablet TAKE 1 TABLET BY MOUTH DAILY DIRECTED active Not Available Not Available No t Available doxepin 25 mg capsule TAKE 1 CAPSULE BY MOUTH AT BEDTIME 05/10 completed Not Available Not Available Not Available clonazepam 1 mg tablet TAKE 1 TABLET BY MOUTH AT NOON active Not Available Not Available No t Available cefadroxil 500 mg capsule TAKE 1 CAPSULE BY MOUTH EVERY 12 HOURS 2024 active Not Available Not Available Not Avai lable paroxetine 20 mg tablet TAKE 1 TABLET BY MOUTH DAILY active Not Available Not Available No t Available clonazepam 2 mg tablet TAKE 1 TABLET BY MOUTH EVERY MORNING AND 1 TABLET BY MOUTH AT 5 PM active Not Available Not Available No t Available gabapentin 300 mg capsule TAKE 1 CAPSULE BY MOUTH THREE TIMES DAILY active Not Available Not Available No t Available methylpredn isolone 4 mg tablets in a dose pack TAKE BLISTER PACK INSTRUCTE D 05/10 completed Not Available Not Available Not Available albuterol sulfate HFA 90 mcg/actuati on aerosol inhaler INHALE 1 TO 2 PUFFS BY MOUTH EVERY 4 TO 6 HOURS NEEDED 2024 active Not Available Not Available Not Avai lable paroxetine 40 mg tablet TAKE 1 TABLET BY MOUTH DAILY active Not Available Not Available No t Available atenolol 50 mg tablet TAKE 1 TABLET BY MOUTH EVERY DAY active Not Available Not Available No t Available duloxetine 60 mg capsule,del ayed release TAKE 1 CAPSULE BY MOUTH DAILY active Not Available Not Available No t Available Paxlovid 300 mg (150 mg x 2)-100 mg tablets in a dose pack take as directed 05/10 completed Not Available Not Available Not Available Vitals Date Recorded Body weight Respiratory rate Oxygen saturation Oxygen saturation in Arterial blood by Pulse oximetry Systolic blood pressure Diastolic blood pressure Provider Name and Address Organization Details Last Updated DateTime 910939. 61 g 18 /min 97 % 97 % 118 mm[Hg] 70 mm[Hg] Angelica White [facility] 14:54:38 Date Recorded Heart rate Provider Name an d Address Organization Details Last Updated DateTime 05/10/2024 92 /min Joel Green MD [facility], [address] 05/10/2024 15:23:26 Social History None recorded. Functional Status None recorded. Mental Status None recorded. Family History Nothing Reported. Medical History No medical history recorded. Immunizations Vaccine Type Date Status Note Provider Nam e and Address Organization Details Recorded Time MMR 05/21/1994 completed [facility] 05/10/2024 14:46:06 MMR 02/09/1996 completed [facility]ica [facility] 05/10/2024 14:46:06 DT 05/21/1994 completed [facility] 05/10/2024 14:46:06 DT 1990 completed [facility] 05/10/2024 14:46:06 DTP 02/09/1996 completed Angelica Christopher null, [facility] 05/10/2024 14:46:06 OPV 05/21/1994 completed Angelica Christopher null, [facility] 05/10/2024 14:46:06 OPV 1990 completed Angelica Christopher null, [facility] 05/10/2024 14:46:06 OPV 02/09/1996 completed Angelica Christopher null, [facility] 05/10/2024 14:46:06 Hep B, adolescent or pediatric 05/21/1994 completed Angelica Christopher null, [facility] 05/10/2024 14:46:06 Hep B, adolescent or pediatric 06/21/1994 completed Angelica Christopher null, [facility] 05/10/2024 14:46:06 Hep B, adolescent or pediatric 02/09/1996 completed Angelica Christopher null, [facility] 05/10/2024 14:46:06 DTaP 02/02/1997 completed Angelica Christopher null, [facility] 05/10/2024 14:46:06 Past Encounters Encounter ID Performer Location Encounter Start Date Encounter Closed Date Diagnosis/Indication Diagnosis SNOMED-CT Code Diagnosis ICD10 Code Diagnosis Note [id number] Joel Green MD [address] [address] 05/10/2024 14:40:39 05/10/2024 15:43:28 Essential hypertension 98206138 I10 Depressive disorder 3548 9007 F32.A Cervical radiculopathy 20457386 M54.12 Anxiety 81738066 F41.9 Long-term current use of antibiotic 437856448 Z79.2 Pain of le ft hip joint 7016150554 74360 M25.552 Health Concerns Section Related Observation LastModified by Organization Detai ls LastModified Time None Recorded Concern Status LastModified by Organization Details LastModified Time None Recorded Advance Directives Directive None Recorded Payers Encounter Date Sequence Insurance Name Policy Number Policy Donis Covered Member ID Donis Member ID Guarantor Name 05/10/2024 1 [place] Akash Carias [id number] Akash Carias 05/10/2024 2 [place] [employer] Akash Carias [id number] Akash Carias Notes Date Note Type Note Provider Name and Address Organization Details Recorded Time 05/10/2024 text/html Patient is here today for follow up on medications. Joel Green MD [address] [place] [address], [phone], [facility] 05/10/2024 20:29:34
[2024-08-17 18:38] LABS: Alanine Aminotransferase 41 U/L (16-63); Albumin Level 3.5 g/dL (3.4-5.0); Alkaline Phosphatase 134 U/L (46-116); Anion Gap 10 mmol/L (4-12); Aspartate Amino Transferase 37 U/L (15-37); Bilirubin,Total 0.8 mg/dL (0.00-1.00); Blood Urea Nitrogen 17 mg/dL (7-18); Carbon Dioxide 28 mmol/L (21-32); Chloride 101 mmol/L (98-108); Estimated Glomerular Filt Rate > 60; Glucose 130 mg/dL (70-99); Osmolality Calculated 291 mOsm/kg (285-295); Potassium 4.2 mmol/L (3.5-5.1); Sodium 139 mmol/L (136-145); Total Protein 7.1 g/dL (6.4-8.2)
== END 2024-08-17 17:43 | disposition home or self-care (01) ==
LOC: CHSLAB 17:49
DX: Z79.2 Long term (current) use of antibiotics (principal)
CPT/HCPCS: 36415; 80053; 85025; 86140